=== PATIENT | female | born 1965 | race Caucasian/White ===

== ENCOUNTER → 2022-02-24 16:50 | Outpatient (CLI) | payer OTHER, SELFPAY ==
--- NOTE | ~2022-02-24 | MR_ITS ---
EXAMINATION: MR cervical spine wo con DATE: 02/24/2022 17:38 INDICATION: Right-sided neck pain. Right shoulder pain. TECHNIQUE: Magnetic resonance imaging (MRI) of the cervical spine was performed without intravenous c ontrast. Sequences included sagittal T2-weighted FSE, sagittal T2-weighted FS FSE, sagittal T1-weight ed FSE, axial MERGE, and axial T2-weighted FSE. COMPARISON: None FINDINGS: There is hypolordosis of cervical spine. Vertebral body heights are normal. There is mildly decreased disc height at C5-C6 and moderately decreased disc height at C6-C7. The spinal cord signal intensity is normal. The following disc levels are specifically discussed: C2-C3: The disc does not extend beyond the endplate margin. There is moderate right and mild left unc overtebral joint osteoarthritis. There is severe bilateral facet joint osteoarthritis. There is mild bilateral neural foraminal stenosis. There is no central canal stenosis. C3-C4: The disc does not extend beyond the endplate margin. There is mild bilateral uncovertebral myron nt osteoarthritis. There is severe bilateral facet joint osteoarthritis. There is moderate bilateral neural foraminal stenosis. There is no central canal stenosis. C4-C5: The disc is bulging. There is mild bilateral uncovertebral joint osteoarthritis. There is dora re bilateral facet joint osteoarthritis. There is mild right and moderate left neural foraminal steno sis. There is no central canal stenosis. C5-C6: The disc is bulging. There is severe bilateral uncovertebral joint osteoarthritis. There is se albert bilateral facet joint osteoarthritis. There is moderate bilateral neural foraminal stenosis. The re is mild central canal stenosis. C6-C7: The disc is bulging. There is severe bilateral uncovertebral joint osteoarthritis. There is mi ld right facet joint osteoarthritis. There is moderate bilateral neural foraminal stenosis. There is mild central canal stenosis. C7-T1: The disc does not extend beyond the endplate margin. There is mild bilateral uncovertebral myron nt osteoarthritis. There is moderate right and severe left facet joint osteoarthritis. There is mild bilateral neural foraminal stenosis. There is no central canal stenosis. IMPRESSION: 1. Moderate cervical spondylosis. Reviewed, dictated and finalized at location A.
== END ==
PROVIDERS: PCP Emergency Medicine; Visit Provider Emergency Medicine
DX: M25.511 Pain in right shoulder (principal); M47.812 Spondylosis without myelopathy or radiculopathy, cervical region
CPT/HCPCS: 72141

== ENCOUNTER → 2022-08-11 16:05 | Outpatient (CLI) | payer OTHER, SELFPAY ==
--- NOTE | ~2022-08-11 | XR_ITS ---
XR chest 2V DATE: 08/11/2022 16:24 INDICATION: Chest pain with breathing TECHNIQUE: 2 views COMPARISON: 02/01/2017 PA and lateral chest FINDINGS: Normal heart size. No hilar or mediastinal enlargement. Moderate hyperinflation. No pulm onary infiltrate or consolidation, pulmonary vascular congestion or pleural effusion or pneumothorax. IMPRESSION: Moderate hyperinflation Reviewed, dictated and finalized at location L. 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
== END ==
PROVIDERS: PCP Emergency Medicine; Visit Provider Emergency Medicine
DX: R07.1 Chest pain on breathing (principal); R91.8 Other nonspecific abnormal finding of lung field
CPT/HCPCS: 71046

== ENCOUNTER 2023-10-24 14:58 | Outpatient (CLI) | payer OTHER, SELFPAY ==
--- NOTE | ~2023-10-24 | XR_ITS ---
EXAMINATION: XR wrist RT 2V, XR wrist LT 2V DATE: 10/24/2023 15:11 INDICATION: Bilateral wrist pain TECHNIQUE: 1. Posteroanterior and lateral views of the right wrist were obtained. 2. Posteroanterior and lateral views of the left wrist were obtained. COMPARISON: none FINDINGS: Bone alignment is normal at the bilateral wrists. No acute fractures. Polyarticular osteoarthritis, s evere at the left first carpometacarpal joint, moderate severity at the right first carpometacarpal a nd left triscaphe joints and mild at the right triscaphe and bilateral first metacarpophalangeal join ts. There are prominent hypertrophic changes and likely loose osteochondral body at the left first ca rpometacarpal joint. Soft tissues are unremarkable. IMPRESSION: 1. Polyarticular osteoarthritis most prominent at the radial aspect of the bilateral carpi, severe on the left and moderate on the right. Reviewed, dictated and finalized at location A. IMPRESSION: 1. Polyarticular osteoarthritis most prominent at the radial aspect of the bila teral carpi, severe on the left and moderate on the right.
== END 2023-10-24 14:59 ==
PROVIDERS: PCP Emergency Medicine; Visit Provider Emergency Medicine
DX: M19.032 Primary osteoarthritis, left wrist (principal); M19.031 Primary osteoarthritis, right wrist
CPT/HCPCS: 73100

== ENCOUNTER 2023-12-27 12:54 | Outpatient (CLI) | payer OTHER, SELFPAY ==
--- NOTE | 2023-12-27 13:30 | NEURO_ITS ---
Impression: # Complains of numbness of hands. Non-diabetic. # Subtle right Carpal Tunnel Syndrome. # No ulnar neuropathy. # Normal needle/EMG exam. Nerve Conduction Studies Anti Sensory Summary Table Stim Site NR Peak (ms) P-T Amp (?V) Site1 Site2 Delta-P (ms) Dist (cm) Casey (m/s) Left Median Anti Sensory (2-3nd Digit) Wrist 2.7 76.8 Wrist 2-3nd Digit 2.7 14.0 52 Wrist 2.7 59.5 Wrist 2-3nd Digit 2.7 14.0 52 Right Median Anti Sensory (2-3nd Digit) Wrist 3.1 43.0 Wrist 2-3nd Digit 3.1 14.0 45 Wrist 3.1 74.3 Wrist 2-3nd Digit 3.1 14.0 45 Left Radial Anti Sensory (Base 1st Digit) Wrist 1.7 10.7 Wrist Base 1st Digit 1.7 0.0 Right Radial Anti Sensory (Base 1st Digit) Wrist 2.5 13.3 Wrist Base 1st Digit 2.5 0.0 Left Ulnar Anti Sensory (5th Digit) Wrist 2.3 37.4 Wrist 5th Digit 2.3 14.0 61 Right Ulnar Anti Sensory (5th Digit) Wrist 2.3 31.5 Wrist 5th Digit 2.3 14.0 61 Motor Summary Table Stim Site NR Onset (ms) O-P Amp (mV) Site1 Site2 Delta-0 (ms) Dist (cm) Casey (m/s) Left Median Motor (Abd Poll Brev) Wrist 3.1 4.0 Elbow Wrist 5.0 30.0 60 Elbow 8.1 1.9 Right Median Motor (Abd Poll Brev) Wrist 3.4 6.4 Elbow Wrist 5.0 30.0 60 Elbow 8.4 6.2 Left Ulnar Motor (Abd Dig Minimi) Wrist 2.3 6.8 A Elbow Wrist 5.3 30.0 57 A Elbow 7.6 6.1 Right Ulnar Motor (Abd Dig Minimi) Wrist 2.4 8.4 A Elbow Wrist 5.3 30.0 57 A Elbow 7.7 8.0 B Elbow Wrist 0.3 0.0 F Wave Studies NR F-Lat (ms) L-R F-Lat (ms) Left Median (Mrkrs) (Abd Poll Brev) 28.56 0.02 Right Median (Mrkrs) (Abd Poll Brev) 28.54 0.02 Left Ulnar (Mrkrs) (Abd Dig Min) 27.67 0.61 Right Ulnar (Mrkrs) (Abd Dig Min) 28.28 0.61 EMG Side Muscle Nerve Root Ins Act Fibs Amp Dur Recrt Comment Right 1stDorInt Ulnar C8-T1 Nml Nml Nml Nml Nml Right Ext Indicis Radial (Post Int) C7-8 Nml Nml Nml Nml Nml Right Ext Digitorum Radial (Post Int) C7-8 Nml Nml Nml Nml Nml Right BrachioRad Radial C5-6 Nml Nml Nml Nml Nml Right PronatorTeres Median C6-7 Nml Nml Nml Nml Nml Right Abd Poll Brev Median C8-T1 Nml Nml Nml Nml Nml Right ABD Dig Min Ulnar C8-T1 Nml Nml Nml Nml Nml Left 1stDorInt Ulnar C8-T1 Nml Nml Nml Nml Nml Left Ext Indicis Radial (Post Int) C7-8 Nml Nml Nml Nml Nml Left Ext Digitorum Radial (Post Int) C7-8 Nml Nml Nml Nml Nml Left BrachioRad Radial C5-6 Nml Nml Nml Nml Nml Left PronatorTeres Median C6-7 Nml Nml Nml Nml Nml Left Abd Poll Brev Median C8-T1 Nml Nml Nml Nml Nml Left ABD Dig Min Ulnar C8-T1 Nml Nml Nml Nml Nml MTDD
== END 2023-12-27 12:55 | disposition home or self-care (01) ==
PROVIDERS: PCP Emergency Medicine; Visit Provider Plastic Surgery
DX: G56.01 Carpal tunnel syndrome, right upper limb (principal)
CPT/HCPCS: 95886; 95911

== ENCOUNTER 2024-01-01 15:00 | Outpatient (RCR) | payer OTHER, SELFPAY ==
--- NOTE | 2023-11-20 16:04 | OTOPEVAL1 ---
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 She reports she is limited in her hand use. She reports it's next to impossible to open a jar or pinch to open a bag. She states she frequently drops items. She is waiting on a call from neurology to schedule an EMG for possible CTS. 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 Reported Pain Level Pain Score 4/10 bilateral thumbs Assessment OT Clinical Summary Patient referred to OT with dx of bilateral 1st CMC OA and carpal tunnel syndrome. 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 Her pain has progressed to the point where it's constant. A custom hand-based thumb spica splint was fabricated for the patient today to support, protect, and immobilize the 1st CMC to assist in reducing inflammation. Initiated education on joint protection techniques to further help reduce repetitive strain. Continued skilled OT indicated for fabrication of a left thumb spica orthosis, use of modalities, manual therapy, and progressive therapeutic exercise to facilitate optimal functional hand use and reduced pain. Plan of Care Interventions Therapeutic Exercise,Manual Therapy,Therapeutic Activities,Check Out for Orthotic/Pr,Ultrasound, Paraffin OT Services Indicated Yes Treatment Frequency and 1x/week for 6 visits Duration These treatments will address the objective and functional deficits as defined above. The patient will be advanced safely and appropriately in order for the patient to progress towards his/her prior level of function. Additional exercises will be introduced and as well as a comprehensive home exercise program upon discharge, if needed, ?to ensure carryover of functional gains achieved in the clinic. This treatment plan has been reviewed and agreement upon by the patient.
--- NOTE | 2023-11-20 16:04 | OPREHPOC ---
Outpatient Therapy Plan of Care This is a Multidisciplinary Plan of Care that may contain components documented by all disciplines (PT, OT, and ST.) OT Problem 1 OT Problem #1 Knowledge Deficit OT Goal 1 Goal 1. Patient to be independent with instructed materails. Target Visit 6 OT Problem 2 OT Problem #2 Pain OT Goal 1 Goal 1. Patient to report reduced pain in bilateral hands to 2/10 at worst . Target Visit 6 OT Problem 3 OT Problem #3 Impaired Strength OT Goal 1 Goal 1. Patient to be able to complete light rod and tube straightener/pinch strengthening with yellow theraputty without pain . 2. Patient to be independent with CMC stabilization HEP (rubber band).
--- NOTE | 2023-12-05 08:07 | PCOTNOTE ---
Addendum to Note: Paraffin applied to both R and L hand on Date Nov 27 treatment time 15:15 Paraffin Temp 135 degrees F 5 layers applied to Bilateral hand for a duration of 10 minutes. Applied to assist with pain management and soft tissue tightness. Patient was educated in use of paraffin and had good response to paraffin.
--- NOTE | 2024-01-01 15:43 | OTOPDC ---
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 She is having less pain with writing and typing tasks. She reports she continues to have difficulty with opening a jar or pinching to open a bag. She has been using adaptive equipment to open jars, containers, etc. to take the pressure off of her thumbs and she states this is helpful. She reports she isn't dropping items as much. EMG 12/27/23 shows mild CTS on the right. Assessment OT Clinical Summary Patient referred to OT with dx of bilateral 1st CMC OA and carpal tunnel syndrome. She no longer is experiencing constant pain and reports that therapy has helped teach her how she can better care for her thumbs. 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 Pinch strengths, particularly lateral pinching continues to be limited and painful. She has weaned off the brace, but understands that she can resume splinting as needed for pain control. We reviewed her HEP and she requests discharge at this time. She demonstrates good understanding of all materials. Recommending she continue to work on light functional strengthening to support the CMC joint. D/C OT with HEP. Plan of Care OT Services Indicated No
== END 2024-01-02 09:38 | disposition home or self-care (01) ==
LOC: ANHOT 15:00
PROVIDERS: PCP Emergency Medicine; Visit Provider Plastic Surgery
DX: M18.9 Osteoarthritis of first carpometacarpal joint, unspecified (principal); G56.03 Carpal tunnel syndrome, bilateral upper limbs
CPT/HCPCS: 97018; 97110; 97140; 97165; L3913

== ENCOUNTER 2024-12-04 | Day surgery (SDC) | payer OTHER, SELFPAY ==
[2024-12-02 08:25] VITALS: BMI 41.4
--- NOTE | 2024-12-02 08:36 | PC.NURSE ---
Report to the Outpatient Waiting Room, entrance under the green pavilion located off [facility], at time _0600_ on date _[id number]_. Planned Procedure Time: _0730_.? Time changes happen often and if your time is changed the preop area will call you the afternoon before. - You and your visitor will be asked to self-screen and do not enter if you have any COVID symptoms. Please call surgeon if you need to reschedule. - A mask is optional within the hospital at this time. - No food or drink from midnight until time of surgery and no smoking, or chewing tobacco (or any form of nicotine). No chewing gum, candy or mints. Take only the following medications with a SIP of water on the morning of surgery: ___Amlodipine and Sertraline.____ DO NOT STOP ANY OF YOUR OTHER PRESCRIPTION MEDICATIONS PRIOR TO SURGERY EXCEPT THE FOLLOWING Hold all vitamins and supplements for 3 days per anesthesiologist. Stop now. Medications to discontinue per physician Date to take last dose Please no make-up, nail georgian, hairspray, perfume, deodorant, or body powder the day of surgery.? No jewelry (including any body piercings) or valuables the day of surgery, leave them at home.? Please take a shower or bath the night before, or the morning of, surgery with an antibacterial soap.? Wear comfortable, loose fitting clothing.? - Jewelry must be removed prior to entering the operating room.? Rings and piercings that are not removed may be cut off. - The hospital will not accept responsibility for valuables.? - Please leave all valuables, including medications, at home the day of surgery. If you are going home after surgery, a licensed driver utility worker must drive you home.? - NO public transportation without another adult if you receive anesthesia. - We recommend that an adult stay with you for 24 hours following discharge. - We also recommend that you do not drive, make important decision, drink alcoholic beverages, or take any drugs that were not prescribed by your health care provider for at least 24 hours after your discharge time. Follow any additional instructions given to you from your surgeon. Telephone instructions given to __Krysta___and asked if any additional questions and then verbalized understanding. Patient advised to call surgeon office or pre surgery nurse liaison [phone] if any additional questions.
--- OUTSIDE RECORDS SUMMARY | 2024-12-04 00:02 | XMS_ITS | Clinical Summary ---
Author Organization [facility] Address [address] [place] [address] Care Team Providers Care Retail Assistant Manager Name Role Phone Unavailable Primary Care Provider Unavailabl e Source Comments [facility],non-owned Affiliates and Associated Physician Practices is amultiple site organization consisting of ambulatory clinics and hospital sitesin [place], [place], [place] and [place]. This disclosure is being madepursuant to the Care Everywhere program and may not contain all information available regarding this patient. Last updated 18.[facility] Social History Tobacco Use Types Packs/Day Years Used Date Smoking Tobacco: Never Assessed Comments Unknown Sex and Gender Information Value Date Recorded Sex Assigned at Not on file Legal Sex Female 11:13 AM CDT Gender Identity Not on file Sexual Orientation Not on file Plan of Treatment Health Maintenance Due Date Last Done Comments COLOGUARD (AGES 45-75) - COL ON CA SCREENING 1967 COLON MONITORING 1967 COLONOSCOPY - COLON CA SCREENING 1967 CT COLONOGRAPHY - COLON CA SCREENING 1967 Colorectal Cancer Screening 1967 FIT - COLON CA SCREENING 1967 FLEX SIG - COLON CA SCREENING 1967 LIPID TESTING 1967 MAMMOGRAM 1967 HIV SCREENING 12/25/1982 HEPATITIS C SCREENING 12/21/1985 DTAP/TDAP/TD VACCINES (1 - Tdap) 12/25/1986 HEPATITIS B VACCINE (1 of 3 - 19+ 3-dose series) 12/25/1986 PNEUMOCOCCAL VACCINE 50+ (1 of 1 - PCV) 12/25/2017 ZOSTER VACCINE (1 of 2) 12/25/2017 COVID-19 VACCINE ( - 2023-2 5 season) 2024 DEPRESSION SCREENING 06/05/2024 INFLUENZA VACCINE (Season Ended) 2025 HIB VACCINE Aged Out No longer eligi ble based on patient's age to complete this topic HPV VACCINE Aged Out No longer eligi ble based on patient's age to complete this topic MENINGOCOCCAL (Group B) VACC INE SHARED DECISION-MAKING Aged Out No longer eligibl e based on patient's age to complete this topic MENINGOCOCCAL GROUPS A/C/Y/W VACCINE Aged Out No longer eligible b ased on patient's age to complete this topic Insurance [employer]
--- OUTSIDE RECORDS SUMMARY | 2024-12-04 00:02 | XMS_ITS | Encounter Summary ---
Author Organization [facility] Address [address] [place] [address] Care Team Providers Care Floor Coverings Installer Name Role Phone Unavailable Primary Care Provider Unavailabl e Encounter Details Date Type Department Care Team (Late st Contact Info) Description 10/10/2019 Lab Requisition [facility] [address] [place] [id number] Darron Rodgers MD [address] [place] [address] Social History Tobacco Use Types Packs/Day Years Used Date Smoking Tobacco: Never Assessed Comments Unknown Sex and Gender Information Value Date Recorded Sex Assigned at Not on file Legal Sex Female 11:13 AM CDT Gender Identity Not on file Sexual Orientation Not on file documented as of this encounter Plan of Treatment Not on file documented as of this encounter Procedures Procedure Name Priority Date/Time Associated Diagnosis Comments DERMATOPATHOLOGY Routine 10/09/2019 12:0 0 AM CDT documented in this encounter Results * DERMATOPATHOLOGY (10/09/2019 12:00 AM CDT) Case Report Dermatopathology Report Case: [id number] Authorizing Provider: Darron Rodgers MD Collected: 10/09/2019 12:00 AM Ordering Location: [facility] Received: 10/10/2019 11:33 AM Pathologist: Erwin Pal MD Specimen: Skin, midline mid back 0 2:41 PM CDT DERMATOPATHOLOGY LABORATORY Final Diagnosis Specimen A. SKIN, midline mid back: EPIDERMOID CYST (L72.0) 0 2:41 PM CDT DERMATOPATHOLOGY LABORATORY at 1441 CDT Clinical History R/O EIC vs other neoplasm. 0 2:41 PM CDT DERMATOPATHOLOGY LABORATORY Gross Description Specimen A: Received is one formalin filled container labeled with the patient's name and designated midline mid back. The specimen consists of an excision measuring [id number], bisected and submitted in cassettes 1-2. Jar 0. 0 2:41 PM CDT DERMATOPATHOLOGY LABORATORY Microscopic Description Specimen A. SKIN, midline mid back: Within the dermis, there is a space lined by epithelium that resembles normal epidermis and the infundibular portion of the hair follicle. 0 2:41 PM CDT DERMATOPATHOLOGY LABORATORY Disclaimer An external and internal positive and negative controls are appropriate for the histochemical, immunohistochemical and immunofluorescence stain(s) in this case (if any), except where stated explicitly. The performance characteristics of the stain(s) cited in this report were developed and its performance characteristic determined by the Dermatopathology Laboratory at [facility], directed by Dr. Aj Pal. These tests need not be, and therefore are not, approved by the [place] Food and Drug Administration. The tests are used for clinical purposes. Billing Codes Specimen Charges Stain Charges 06127 1 0 2:41 PM CDT DERMATOPATHOLOGY LABORATORY Embedded Images 0 2:41 PM CDT DERMATOPATHOLOGY LABORATORY Pathology/Cytolog y TISSUE SPECIMEN FROM SKIN / Unknown 10/09/2019 10/10/2019 11:33 AM CDT Darron Rodgers MD LAB - PATHOLOGY/CYTOLOGY ORD ERABLES Final Result DERMATOPATHOLOGY LABORATORY [facility] - Department of Dermatology [address] [place] [address], [facility] [phone] documented in this encounter Visit Diagnoses Not on filedocumented in this encounter
[2024-12-04 06:00] VITALS: BP 135/84; PULSE 69; RESP 16; TEMP 36.9; O2SAT 97
[2024-12-04] MEDS: LACTATED RINGERS 1,000 ML 30 ML IV CONT (06:12)
--- NOTE | 2024-12-04 06:46 | P.PNAN_ITS ---
Anes - Initial Pre Proc Eval Procedure: Operation Date: 12/04/24 07:30 Proposed Procedures p Right Endoscopic Carpal Tunnel Release, Possible Open, Right Cubital Tunnel Release - Richard Mcintosh MD Date/Time: 12/04/24 06:46 Surgeon: Richard Mcintosh MD Pre Op Diagnosis: rt carpal and cubital tunnel syndrome Patient Data Age: 58 Gender: F Height: 1.75 m Weight: 126.1 kg Last Vital Signs Temp 36.9 C 12/04/24 06:00 Pulse 69 12/04/24 06:00 Resp 16 12/04/24 06:00 BP 135/84 12/04/24 06:00 Pulse Ox 97 12/04/24 06:00 O2 Del Method Room Air 12/04/24 06:00 Allergies Allergy/AdvReac Type Severity Reaction Status Date / Time codeine Allergy Unknown unknown Verified 12/04/24 06:27 hydrocodone AdvReac Unknown SEVERE GI Verified 12/04/24 06:27 DISTRESS Home Medications ?Medication ?Instructions ?Recorded ?Confirmed ?Type cetirizine 10 mg tablet (Zyrtec) 10 mg PO DAILY 10/14/19 12/04/24 History cholecalciferol (vitamin D3) 50 50 mcg PO DAILY 02/14/22 12/04/24 History mcg (2,000 unit) capsule mecobalamin (vitamin B12) 1,000 1,000 mcg PO DAILY 09/28/23 12/04/24 History mcg chewable tablet sertraline 50 mg tablet See Rx Instructions .Route 10/06/23 12/04/24 Rx .COMPLEX #270 tabs simvastatin 40 mg tablet See Rx Instructions .Route 10/19/23 12/04/24 Rx .COMPLEX #90 tabs magnesium 250 mg tablet 483 mg PO DAILY 01/01/24 12/04/24 History biotin 5,000 mcg chewable tablet 5,000 mcg PO DAILY 02/13/24 12/04/24 History metoprolol tartrate 50 mg tablet 50 mg PO DAILY #90 tabs 05/08/24 12/04/24 Rx omega-3s 350 dv-[id number]-[id number]-[id number] 2 cap PO DAILY 06/24/24 12/04/24 History zumwl7w-skve oil 600 mg capsule (Fish Oil) lisinopril 10 mg tablet See Rx Instructions .Route 10/29/24 12/04/24 Rx .COMPLEX #90 tabs amlodipine 10 mg tablet See Rx Instructions .Route 11/27/24 12/04/24 Rx .COMPLEX #90 tabs Patient hx anesthesia problems: none Family hx anesthesia problems: none Results Review: All pre-operative results and documents have been reviewed as part of the pre- operative evaluation. [facility] Past Medical History Medical History Shoulder pain, right Respiratory tract congestion with cough Upper respiratory tract infection Palpitation Sinusitis Epigastric pain Folliculitis Hyperglycemia Hypothyroidism, unspecified Major depressive disorder, single episode, unspecified Metabolic syndrome Rash Rhinosinusitis Sore throat Vitamin D deficiency Hyperlipidemia Surgical History Surgical History (Updated 12/04/24 @ 06:49 by Corona Escobar MD) History of bladder surgery History of appendectomy Family History Family History Father Family history of pancreatic disease, Onset Age: 60 Mother Family history of heart disease in male family member before age 55, Onset Age: 67 Hypertension Sibling Hypertension Social History Social History Smoking status: Former smoker Tobacco type: cigarettes Second hand tobacco smoke exposure: No Smoking end date: 06/05/03 Alcohol intake: current Substance use: never Substance use type: marijuana Do You Feel Safe in your Home?: Yes Lack of Transportation: No Lack of Food: Never True Current Housing: Decline to Answer Concerned About Future Housing: Decline to Answer Difficulty Paying Gas/Electric Bills: Decline to Answer Difficulty Paying for Meds: Decline to Answer Currently Unemployed: Decline to Answer Education: Trade/Vocational Certificate Difficulty w/ Childcare or Family Care: Decline to Answer Anes - Eval Final PreProcedure Day of Procedure 12/04/24 06:46 Patient weight: morbidly obese Heart: regular rate and rhythm Lungs: clear to auscultation Airway: Mallampati scale class II Neurological: alert and oriented Last oral intake: >/= 8 hours ASA classification: III Emergent: no Anesthetic plan: proceed Anesthesia type and monitoring: general GIVS and standard monitoring Results Review: All pre-operative results and documents have been reviewed as part of the pre- operative evaluation. Informed Consent: The patient's anesthetic plan and its attendant risks and benefits were discussed with the patient/family/POA. Questions were solicited and answers provided to the satisfaction of the patient/family/POA.
--- NOTE | 2024-12-04 07:19 | PM.HPGS ---
History of Present Illness History of Present Illness Chief complaint: rt carpal and cubital tunnel syndrome Narrative: Patient seen and examined in pre-operative holding area. No interval change in medical history or symptoms. Patient recalls previous discussion of benefits and alternatives to procedure. Continues to desire to proceed with right endoscopic possible open carpal tunnel releae and right cubital tunnel release . Reviewed procedure, post-op expectations and risks including but not limited to bleeding, infection, injury to tendon/nerve/vessel, decreased hand function, stiffness, RSD, no change or worsening of symptoms. I discussed the possible use of assistants and their participation in the case. Patient stated understanding and signed the consent form wishing to proceed. Review of Systems Review of Systems: All systems reviewed & are unremarkable except as noted in HPI and below PMFSH Past Medical History Medical History Shoulder pain, right Respiratory tract congestion with cough Upper respiratory tract infection Palpitation Sinusitis Epigastric pain Folliculitis Hyperglycemia Hypothyroidism, unspecified Major depressive disorder, single episode, unspecified Metabolic syndrome Rash Rhinosinusitis Sore throat Vitamin D deficiency Hyperlipidemia Surgical History Surgical History (Updated 12/04/24 @ 06:49 by Corona Escobar MD) History of bladder surgery History of appendectomy Family History Family History Father Family history of pancreatic disease, Onset Age: 60 Mother Family history of heart disease in male family member before age 55, Onset Age: 67 Hypertension Sibling Hypertension Social History Social History Smoking status: Former smoker Tobacco type: cigarettes Second hand tobacco smoke exposure: No Smoking end date: 06/05/03 Alcohol intake: current Substance use: never Substance use type: marijuana Do You Feel Safe in your Home?: Yes Lack of Transportation: No Lack of Food: Never True Current Housing: Decline to Answer Concerned About Future Housing: Decline to Answer Difficulty Paying Gas/Electric Bills: Decline to Answer Difficulty Paying for Meds: Decline to Answer Currently Unemployed: Decline to Answer Education: Trade/Vocational Certificate Difficulty w/ Childcare or Family Care: Decline to Answer Meds Home Medications and Allergies Home Medications ?Medication ?Instructions ?Recorded ?Confirmed ?Type cetirizine 10 mg tablet (Zyrtec) 10 mg PO DAILY 10/14/19 12/04/24 History cholecalciferol (vitamin D3) 50 50 mcg PO DAILY 02/14/22 12/04/24 History mcg (2,000 unit) capsule mecobalamin (vitamin B12) 1,000 1,000 mcg PO DAILY 09/28/23 12/04/24 History mcg chewable tablet sertraline 50 mg tablet See Rx Instructions .Route 10/06/23 12/04/24 Rx .COMPLEX #270 tabs simvastatin 40 mg tablet See Rx Instructions .Route 10/19/23 12/04/24 Rx .COMPLEX #90 tabs magnesium 250 mg tablet 483 mg PO DAILY 01/01/24 12/04/24 History biotin 5,000 mcg chewable tablet 5,000 mcg PO DAILY 02/13/24 12/04/24 History metoprolol tartrate 50 mg tablet 50 mg PO DAILY #90 tabs 05/08/24 12/04/24 Rx omega-3s 350 ou-jbj-dzc-other 2 cap PO DAILY 06/24/24 12/04/24 History hfihm5a-ttak oil 600 mg capsule (Fish Oil) lisinopril 10 mg tablet See Rx Instructions .Route 10/29/24 12/04/24 Rx .COMPLEX #90 tabs amlodipine 10 mg tablet See Rx Instructions .Route 11/27/24 12/04/24 Rx .COMPLEX #90 tabs Allergies Allergy/AdvReac Type Severity Reaction Status Date / Time codeine Allergy Unknown unknown Verified 12/04/24 06:27 hydrocodone AdvReac Unknown SEVERE GI Verified 12/04/24 06:27 DISTRESS Vital Signs Vital Signs - 24 hr 12/04/24 06:00 Temperature 36.9 C Pulse Rate 69 Respiratory Rate 16 Blood Pressure 135/84 Pulse Oximetry 97 Oxygen Delivery Room Air Assessment and Plan Assessment and plan (1) Carpal tunnel syndrome on both sides: Code(s): G56.03 - Carpal tunnel syndrome, bilateral upper limbs Status: Acute Assessment and Plan: cont as above (2) Ulnar neuropathy at elbow: Qualifiers: Laterality: unspecified laterality Qualified Code(s): G56.20 - Lesion of ulnar nerve, unspecified upper limb Code(s): G56.20 - Lesion of ulnar nerve, unspecified upper limb Status: Acute
--- NOTE | 2024-12-04 07:20 | P.OP_ITS ---
Procedure Note - Detailed Date of Procedure 12/04/24 Pre-op Diagnosis rt carpal and cubital tunnel syndrome Post-op Diagnosis Same Procedure Performed right ectr and CUTR Surgeon Richard Mcintosh MD [employer] Professor robert edwards pa-c Anesthesia MAC Description of Procedure INFORMED CONSENT: The patient was seen and examined and marked in the pre-op area.? The patient signed the consent form. PROCEDURE IN DETAIL:The patient taken back to OR on the stretcher in supine position. Time out performed with anesthesia, surgeon and staff agreeing on patient's name site and surgery to be performed SCDs were placed on the lower extremities and inflated. A tourniquet was placed on {right} upper extremity and antibiotics given IV After anesthesia administered sedation I injected {10}cc 1%lido with epi and 0.5% marcaine plain at the operative sites The?{right upper extremity}?was prepped and draped in sterile fashion the??{right upper extremity} was? exsanguinated with Esmarch bandage and tourniquet inflated to 250mmHg I made a transverse incision in the {right} volar distal wrist crease through skin and dermis with 15 blade scalpel.? Littler scissors spread down to antebrachial fascia. A small incision was made in antebrachial fascia allowing access to Carpal tunnel. I proceeded with sequential dilation staying in line with the ring finger and hugging the hook of the hamate.? I then used the synovial elevator to free any adhesions from the underside of the transverse carpal ligament. Next I was able to insert the Microaire endoscopic carpal tunnel device with direct visualization of the transverse fibers on the monitor and proceeded with complete segmental retrograde release of the ligament in its entirety.? I irrigated with normal saline and closed with 4-0 monocryl for dermis and subcuticular closure. I next proceeded with making a longitudinal incision between two heads for flexor carpi ulnaris at end of {right} cubital tunnel with 15 blade scalpel.? Littler scissors were used to spread down to FCU fascia.? An incision was made in FCU fascia and ulnar nerve identified exiting cubital tunnel.? I proceeded with complete retrograde release of the cubital tunnel including 7cm proximal for the intermuscular septum.? The nerve appeared healthy with visible vaso nervorum.? There was no subluxation on full elbow range of motion. ? I irrigated with normal saline and closure with 4-0 monocryl for dermis and subcuticular. The incisions were covered with Dermabond then 4x4s, francisco, and a posterior elbow and volar wrist splint for patient safety, security and comfort and secured with massimo bandages after the tourniquet was let down noting the hand was warm and well perfused.? Patient awaken from anesthesia and transferred to recovery in stable condition Complications - none EBL- 1cc Disposition - home in stable condition robert edwards pa-c was essential for positioning, retraction, closure and dressing placement [facility] Billing Surgery - Charge Forward: Surgery Billing ([id number] same for robert adding )
[2024-12-04] MEDS: ceFAZolin 3 GM/D5W 100 ML 100 ML IVPB (07:26)
[2024-12-04] MEDS: LIDO 1%/EPINEPHRINE 1:100,000 50 ML VIAL 10 ML INFILTRATE (07:26)
[2024-12-04] MEDS: BUPivacaine HCL 0.5% 10 ML AMP INFILTRATE (07:26)
[2024-12-04 08:05] VITALS: BP 119/69; PULSE 71; RESP 18; O2SAT 99
[2024-12-04 08:35] VITALS: BP 101/43; PULSE 59
[2024-12-04] MEDS: ACETAMINOPHEN 500 MG TABLET 1000 MG PO (08:43)
== END 2024-12-04 09:00 | disposition home or self-care (01) ==
PROVIDERS: PCP Emergency Medicine; Visit Provider Plastic Surgery
PROC: 01N54ZZ Release Median Nerve, Percutaneous Endoscopic Approach (ICD-10-PCS; CPT 29848; principal; 2024-12-04 07:30)
DX: G56.01 Carpal tunnel syndrome, right upper limb (principal); G56.21 Lesion of ulnar nerve, right upper limb; Z87.891 Personal history of nicotine dependence; E66.01 Morbid (severe) obesity due to excess calories; Z68.41 Body mass index [BMI] 40.0-44.9, adult
CPT/HCPCS: 29848; 64718; A9270; J0690; J2003; J2004; J2250; J2704; J7120

== ENCOUNTER 2025-02-28 14:40 | Outpatient (CLI) | payer OTHER, SELFPAY ==
--- NOTE | ~2025-02-28 | MR_ITS ---
EXAMINATION: MR lumbar spine wo/w con COMPARISON: None HISTORY: M54.9 - Dorsalgia, unspecified TECHNIQUE: Multiplanar multisequence images obtained of the lumbar without and with intravenous contrast, Prohance 17cc injected IV. FINDINGS: Moderate loss of vertebral height throughout with grade 1 retrolisthesis of L2 on L3 and L3 on L4, no fracture is identified. There are scattered areas of hemangioma formation otherwise marrow signal is appropriate. Posterior alignment intact. No abnormal signal within the posterior elements Conus terminates at T12-L1, no abnormal signal in the cord There is severe loss of disc height throughout with multilevel moderate to severe disc desiccation and endplate degenerative changes. The soft tissues appear unremarkable L5-S1: Circumferential bulging of the disc with ligamentum flavum and facet hypertrophy. Severe bilateral foramina and lateral recess stenosis with mild canal stenosis. L4-5: Circumferential bulging of the disc with ligamentum flavum and facet hypertrophy. Severe bilateral foramina, lateral recess and canal stenosis. L3-4: Circumferential bulging of the disc with ligamentum flavum and facet hypertrophy. Moderate bilateral foramina, lateral recess and canal stenosis. L2-3: Circumferential bulging of the disc with ligamentum flavum and facet hypertrophy. Moderate to severe bilateral foramina and lateral recess stenosis, mild canal stenosis. L1-L2: Circumferential bulging of the disc with broad-based disc protrusion to the left of midline with moderate bilateral foramina, lateral recess and canal stenosis. The contrast-enhanced sequences demonstrate mild abnormal enhancement involving the meninges at L4-5 with mild abnormal enhancement of the exiting nerve roots likely reactive due to the degenerative changes at this level in the absence of a history of fever or concern for discitis or meningitis. Clinically if there is concern for discitis or meningitis short-term follow-up is recommended to assess for change IMPRESSION: Degenerative changes detailed above. There is mild abnormal enhancement at L4-5. Please see above Reviewed, dictated and finalized at location P. IMPRESSION: Degenerative changes detailed above. There is mild abnormal enhance ment at L4-5. Please see above
== END 2025-02-28 14:41 | disposition home or self-care (01) ==
PROVIDERS: PCP Emergency Medicine; Visit Provider Emergency Medicine
DX: M51.370 Other intervertebral disc degeneration, lumbosacral region with discogenic back pain only (principal); M51.369 Other intervertebral disc degeneration, lumbar region without mention of lumbar back pain or lower extremity pain; M99.63 Osseous and subluxation stenosis of intervertebral foramina of lumbar region; M54.30 Sciatica, unspecified side
CPT/HCPCS: 72158; A9577

== ENCOUNTER 2025-03-26 02:29 | Day surgery (SDC) | payer OTHER, SELFPAY ==
--- NOTE | 2025-03-17 15:24 | PC.NURSE ---
[facility] has started construction of its new state of the art ER which will open Spring 2026. With this, we anticipate parking may be a challenge for some our surgical patients and families. Parking spaces are limited but are available for all Surgical, obstetrics, and ER patients sharing this lot. If you arrive and find you are having a hard time finding a parking space, please note that we understand the challenges, please drive around the hospital and park near Hospital Entrance 1. When you enter this entrance, you can ask a volunteer to direct or take you back to the surgical waiting area to check in. We appreciate everyone?s understanding of these expected challenges while we build for your future. Report to the Outpatient Waiting Room, entrance under the green pavilion located off [address], at time _0830__ on date 03/26/25_. Planned Procedure Time: 1030__.? Time changes happen often and if your time is changed the preop area will call you the afternoon before. - You and your visitor will be asked to self-screen and do not enter if you have any COVID symptoms. Please call surgeon if you need to reschedule. - A mask is optional within the hospital at this time. Patients may have clear liquids (water, carbonated beverages, clear teas, apple juice) until 8 hours prior to surgery with a maximum of 20 ounces. - No food from midnight until time of surgery and no smoking, or chewing tobacco (or any form of nicotine). No chewing gum, candy or mints. Take only the following medications with a SIP of water on the morning of surgery: _AMLODIPINE, SETRALINE, METOPROLOL DO NOT STOP ANY OF YOUR OTHER PRESCRIPTION MEDICATIONS PRIOR TO SURGERY EXCEPT THE FOLLOWING Hold all vitamins and supplements for 3 days per anesthesiologist. 03/23/25 Medications to discontinue per physician Date to take last dose Please no make-up, nail malay, hairspray, perfume, deodorant, or body powder the day of surgery.? No jewelry (including any body piercings) or valuables the day of surgery, leave them at home.? Please take a shower or bath the night before, or the morning of, surgery with an antibacterial soap.? Wear comfortable, loose fitting clothing.? Children are encouraged to wear pajamas. - Jewelry must be removed prior to entering the operating room.? Rings and piercings that are not removed may be cut off. - The hospital will not accept responsibility for valuables.? - Please leave all valuables, including medications, at home the day of surgery. If you are going home after surgery, a licensed driver guide must drive you home.? - NO public transportation without another adult if you receive anesthesia. - We recommend that an adult stay with you for 24 hours following discharge. - We also recommend that you do not drive, make important decision, drink alcoholic beverages, or take any drugs that were not prescribed by your health care provider for at least 24 hours after your discharge time. For Pediatric surgeries, we recommend two adults accompany the child home. Follow any additional instructions given to you from your surgeon. Telephone instructions given to TRES__and asked if any additional questions and then verbalized understanding. Patient advised to call surgeon office or pre surgery nurse liaison [phone] if any additional questions.
--- NOTE | 2025-03-26 06:53 | PM.HPGS ---
History of Present Illness History of Present Illness Chief complaint: Bilateral carpal and cubital tunnel syndrome Narrative: Patient seen and examined in pre-operative holding area. No interval change in medical history or symptoms. Patient recalls previous discussion of benefits and alternatives to procedure. Continues to desire to proceed with left endoscopic possible open carpal tunnel release and left cubital tunnel release. Reviewed procedure, post-op expectations and risks including but not limited to bleeding, infection, injury to tendon/nerve/vessel, decreased hand function, stiffness, RSD, no change or worsening of symptoms. I discussed the possible use of assistants and their participation in the case. Patient stated understanding and signed the consent form wishing to proceed. Review of Systems Review of Systems: All systems reviewed & are unremarkable except as noted in HPI and below PMFSH Past Medical History Medical History Neurogenic claudication due to lumbar spinal stenosis Dorsalgia Lumbar stenosis Lumbar spondylosis Lumbar radiculopathy Shoulder pain, right Respiratory tract congestion with cough Upper respiratory tract infection Palpitation Sinusitis Epigastric pain Folliculitis Hyperglycemia Hypothyroidism, unspecified Major depressive disorder, single episode, unspecified Metabolic syndrome Rash Rhinosinusitis Sore throat Vitamin D deficiency Hyperlipidemia Surgical History Surgical History History of carpal tunnel release History of bladder surgery History of appendectomy Family History Family History Father Family history of pancreatic disease, Onset Age: 60 Mother Family history of heart disease in male family member before age 55, Onset Age: 67 Hypertension Sibling Hypertension Social History Social History Smoking packs per day: 1 Smoking cigarettes per day: 20.0 Years smoked: 30 Smoking pack-years: 30.00 Smoking status: Former smoker Tobacco type: cigarettes Second hand tobacco smoke exposure: No Smoking end date: 12/02/04 Alcohol intake: current Drinks per week: 14 Substance use: never Substance use type: marijuana Other substance usage details: every other day Do You Feel Safe in your Home?: Yes Lack of Transportation: No Lack of Food: Never True Current Housing: I Have Housing Concerned About Future Housing: No Difficulty Paying Gas/Electric Bills: No Difficulty Paying for Meds: No Currently Unemployed: No Education: Trade/Vocational Certificate Difficulty w/ Childcare or Family Care: No Living arrangements: with family Spiritual care concerns: No Meds Home Medications and Allergies Home Medications ?Medication ?Instructions ?Recorded ?Confirmed ?Type cetirizine 10 mg tablet (Zyrtec) 10 mg PO DAILY 10/14/19 03/26/25 History cholecalciferol (vitamin D3) 50 50 mcg PO DAILY 02/14/22 03/26/25 History mcg (2,000 unit) capsule mecobalamin (vitamin B12) 1,000 1,000 mcg PO DAILY 09/28/23 03/26/25 History mcg chewable tablet simvastatin 40 mg tablet See Rx Instructions .Route 10/19/23 03/26/25 Rx .COMPLEX #90 tabs magnesium 250 mg tablet 483 mg PO DAILY 01/01/24 03/26/25 History biotin 5,000 mcg chewable tablet 5,000 mcg PO DAILY 02/13/24 03/26/25 History omega-3s 350 cb-ehd-ymy-other 2 cap PO DAILY 06/24/24 03/26/25 History elerm8y-uwao oil 600 mg capsule (Fish Oil) lisinopril 10 mg tablet See Rx Instructions .Route 10/29/24 03/26/25 Rx .COMPLEX #90 tabs amlodipine 10 mg tablet See Rx Instructions .Route 11/27/24 03/26/25 Rx .COMPLEX #90 tabs sertraline 50 mg tablet See Rx Instructions .Route 01/09/25 03/26/25 Rx .COMPLEX #270 tabs metoprolol tartrate 50 mg tablet See Rx Instructions .Route 01/27/25 03/26/25 Rx .COMPLEX #90 tabs cyclobenzaprine 10 mg tablet 10 mg PO BID #20 tabs 01/28/25 03/26/25 Rx tramadol 50 mg tablet 50 mg PO Q6H PRN pain #12 tabs 01/28/25 03/17/25 Rx gabapentin 300 mg capsule 300 mg PO QHS #30 caps 03/12/25 03/26/25 Rx collagen,hydrolysate 500 mg-biotin 2 cap PO DAILY 03/17/25 03/26/25 History 800 mcg-ascorbic acid 50 mg capsule (Collagen 1500 Plus C) Allergies Allergy/AdvReac Type Severity Reaction Status Date / Time codeine Allergy Unknown unknown Verified 03/26/25 07:41 hydrocodone AdvReac Unknown SEVERE GI Verified 03/26/25 07:41 DISTRESS Exam Narrative: unchanged Assessment and Plan Assessment and plan (1) Carpal tunnel syndrome on both sides: Code(s): G56.03 - Carpal tunnel syndrome, bilateral upper limbs Status: Acute Assessment and Plan: cont as above (2) Ulnar neuropathy at elbow: Qualifiers: Laterality: unspecified laterality Qualified Code(s): G56.20 - Lesion of ulnar nerve, unspecified upper limb Code(s): G56.20 - Lesion of ulnar nerve, unspecified upper limb Status: Acute
--- NOTE | 2025-03-26 06:54 | P.OP_ITS ---
Procedure Note - Detailed Date of Procedure 03/26/25 Pre-op Diagnosis left carpal and cubital tunnel syndrome Post-op Diagnosis Same Procedure Performed left ectr and CuTR Surgeon Richard Mcintosh MD [employer] Administrator Robert Murphy PA-C Anesthesia MAC Description of Procedure INFORMED CONSENT: The patient was seen and examined and marked in the pre-op area.? The patient signed the consent form. PROCEDURE IN DETAIL:The patient taken back to OR on the stretcher in supine position. Time out performed with anesthesia, surgeon and staff agreeing on patient's name site and surgery to be performed SCDs were placed on the lower extremities and inflated. A tourniquet was placed on {left} upper extremity and antibiotics given IV After anesthesia administered sedation I injected {10}cc 1%lido with epi and 0.5% marcaine plain at the operative sites The?{left upper extremity}?was prepped and draped in sterile fashion the??{left upper extremity} was? exsanguinated with Esmarch bandage and tourniquet inflated to 250mmHg I made a transverse incision in the {left} volar distal wrist crease through skin and dermis with 15 blade scalpel.? Littler scissors spread down to antebrachial fascia. A small incision was made in antebrachial fascia allowing access to Carpal tunnel. I proceeded with sequential dilation staying in line with the ring finger and hugging the hook of the hamate.? I then used the synovial elevator to free any adhesions from the underside of the transverse carpal ligament. Next I was able to insert the Microaire endoscopic carpal tunnel device with direct visualization of the transverse fibers on the monitor and proceeded with complete segmental retrograde release of the ligament in its entirety.? I irrigated with normal saline and closed with 4-0 monocryl for dermis and subcuticular closure. I next proceeded with making a longitudinal incision between two heads for flexor carpi ulnaris at end of {left} cubital tunnel with 15 blade scalpel.? Littler scissors were used to spread down to FCU fascia.? An incision was made in FCU fascia and ulnar nerve identified exiting cubital tunnel.? I proceeded with complete retrograde release of the cubital tunnel including 7cm proximal for the intermuscular septum.? The nerve appeared healthy with visible vaso nervorum.? There was no subluxation on full elbow range of motion. ? I irrigated with normal saline and closure with 4-0 monocryl for dermis and subcuticular. The incisions were covered with Dermabond then 4x4s, francisco, and a posterior elbow and volar wrist splint for patient safety, security and comfort and secured with massimo bandages after the tourniquet was let down noting the hand was warm and well perfused.? Patient awaken from anesthesia and transferred to recovery in stable condition Complications - none EBL- 1cc Disposition - home in stable condition Robert Murphy PA-C was essential for positioning, retraction, closure and dressing placement. [facility] Billing Surgery - Charge Forward: Surgery Billing ([id number] same for robert adding )
[2025-03-26 07:25] VITALS: BMI 41.5
--- NOTE | 2025-03-26 07:48 | WPDANESEPPF ---
Anes - Initial Pre Proc Eval Procedure: Operation Date: 03/26/25 09:00 Proposed Procedures p Left Endoscopic Carpal Tunnel Release, Possible Open, Left Cubital Tunnel Release - Richard Mcintosh MD Date/Time: 03/26/25 07:48 Surgeon: Richard Mcintosh MD Pre Op Diagnosis: Bilateral carpal and cubital tunnel syndrome Patient Data Age: 59 Gender: F Height: 1.75 m Weight: 127.6 kg Allergies Allergy/AdvReac Type Severity Reaction Status Date / Time codeine Allergy Unknown unknown Verified 03/26/25 07:41 hydrocodone AdvReac Unknown SEVERE GI Verified 03/26/25 07:41 DISTRESS Home Medications ?Medication ?Instructions ?Recorded ?Confirmed ?Type cetirizine 10 mg tablet (Zyrtec) 10 mg PO DAILY 10/14/19 03/26/25 History cholecalciferol (vitamin D3) 50 50 mcg PO DAILY 02/14/22 03/26/25 History mcg (2,000 unit) capsule mecobalamin (vitamin B12) 1,000 1,000 mcg PO DAILY 09/28/23 03/26/25 History mcg chewable tablet simvastatin 40 mg tablet See Rx Instructions .Route 10/19/23 03/26/25 Rx .COMPLEX #90 tabs magnesium 250 mg tablet 483 mg PO DAILY 01/01/24 03/26/25 History biotin 5,000 mcg chewable tablet 5,000 mcg PO DAILY 02/13/24 03/26/25 History omega-3s 350 fw-eip-tii-other 2 cap PO DAILY 06/24/24 03/26/25 History uvdyh0g-hgla oil 600 mg capsule (Fish Oil) lisinopril 10 mg tablet See Rx Instructions .Route 10/29/24 03/26/25 Rx .COMPLEX #90 tabs amlodipine 10 mg tablet See Rx Instructions .Route 11/27/24 03/26/25 Rx .COMPLEX #90 tabs sertraline 50 mg tablet See Rx Instructions .Route 01/09/25 03/26/25 Rx .COMPLEX #270 tabs metoprolol tartrate 50 mg tablet See Rx Instructions .Route 01/27/25 03/26/25 Rx .COMPLEX #90 tabs cyclobenzaprine 10 mg tablet 10 mg PO BID #20 tabs 01/28/25 03/26/25 Rx tramadol 50 mg tablet 50 mg PO Q6H PRN pain #12 tabs 01/28/25 03/17/25 Rx gabapentin 300 mg capsule 300 mg PO QHS #30 caps 03/12/25 03/26/25 Rx collagen,hydrolysate 500 mg-biotin 2 cap PO DAILY 03/17/25 03/26/25 History 800 mcg-ascorbic acid 50 mg capsule (Collagen 1500 Plus C) Patient hx anesthesia problems: none Family hx anesthesia problems: none Results Review: All pre-operative results and documents have been reviewed as part of the pre-operative evaluation. [facility] Past Medical History Medical History Neurogenic claudication due to lumbar spinal stenosis Dorsalgia Lumbar stenosis Lumbar spondylosis Lumbar radiculopathy Shoulder pain, right Respiratory tract congestion with cough Upper respiratory tract infection Palpitation Sinusitis Epigastric pain Folliculitis Hyperglycemia Hypothyroidism, unspecified Major depressive disorder, single episode, unspecified Metabolic syndrome Rash Rhinosinusitis Sore throat Vitamin D deficiency Hyperlipidemia Surgical History Surgical History History of carpal tunnel release History of bladder surgery History of appendectomy Family History Family History Father Family history of pancreatic disease, Onset Age: 60 Mother Family history of heart disease in male family member before age 55, Onset Age: 67 Hypertension Sibling Hypertension Social History Social History Smoking packs per day: 1 Smoking cigarettes per day: 20.0 Years smoked: 30 Smoking pack-years: 30.00 Smoking status: Former smoker Tobacco type: cigarettes Second hand tobacco smoke exposure: No Smoking end date: 12/02/04 Alcohol intake: current Drinks per week: 14 Substance use: never Substance use type: marijuana Other substance usage details: every other day Do You Feel Safe in your Home?: Yes Lack of Transportation: No Lack of Food: Never True Current Housing: I Have Housing Concerned About Future Housing: No Difficulty Paying Gas/Electric Bills: No Difficulty Paying for Meds: No Currently Unemployed: No Education: Trade/Vocational Certificate Difficulty w/ Childcare or Family Care: No Living arrangements: with family Spiritual care concerns: No Anes - Eval Final PreProcedure Day of Procedure 03/26/25 07:48 Patient weight: morbidly obese Heart: regular rate and rhythm Lungs: clear to auscultation Airway: Mallampati scale class II Neurological: alert and oriented Last oral intake: >/= 8 hours ASA classification: III Emergent: no Anesthetic plan: proceed Anesthesia type and monitoring: general GIVS and standard monitoring Results Review: All pre-operative results and documents have been reviewed as part of the pre-operative evaluation. Informed Consent: The patient's anesthetic plan and its attendant risks and benefits were discussed with the patient/family/POA. Questions were solicited and answers provided to the satisfaction of the patient/family/POA.
[2025-03-26] MEDS: ceFAZolin 3 GM/D5W 100 ML 100 ML IVPB (08:35)
[2025-03-26] MEDS: LIDO 1%/EPINEPHRINE 1:100,000 50 ML VIAL (08:42)
[2025-03-26 09:00] VITALS: BP 113/54; PULSE 64; RESP 16; O2SAT 96
[2025-03-26] MEDS: LACTATED RINGERS 1,000 ML 30 ML IV CONT (09:00)
[2025-03-26 09:30] VITALS: BP 118/62; PULSE 64; RESP 16; O2SAT 96
[2025-03-26 09:55] VITALS: BP 119/60; PULSE 57; RESP 16
== END 2025-03-26 10:07 | disposition home or self-care (01) ==
PROVIDERS: PCP Emergency Medicine; Visit Provider Plastic Surgery
PROC: 01N54ZZ Release Median Nerve, Percutaneous Endoscopic Approach (ICD-10-PCS; CPT 29848; principal; 2025-03-26 09:00)
DX: G56.02 Carpal tunnel syndrome, left upper limb (principal); G56.22 Lesion of ulnar nerve, left upper limb; E78.5 Hyperlipidemia, unspecified; E55.9 Vitamin D deficiency, unspecified; R73.9 Hyperglycemia, unspecified; E03.9 Hypothyroidism, unspecified; R00.2 Palpitations; E88.810 Metabolic syndrome; M48.062 Spinal stenosis, lumbar region with neurogenic claudication; F32.9 Major depressive disorder, single episode, unspecified; E66.01 Morbid (severe) obesity due to excess calories; Z68.41 Body mass index [BMI] 40.0-44.9, adult; Z79.891 Long term (current) use of opiate analgesic; Z98.890 Other specified postprocedural states; Z87.891 Personal history of nicotine dependence
CPT/HCPCS: 29848; 64718; J0690; J2003; J2004; J2250; J2704; J3010; J7120

== ENCOUNTER 2025-04-08 00:38 | Day surgery (SDC) | payer OTHER, SELFPAY ==
--- NOTE | 2025-03-28 15:33 | PC.NURSE ---
[facility] has started construction of its new state of the art ER which will open Spring 2026. With this, we anticipate parking may be a challenge for some our surgical patients and families. Parking spaces are limited but are available for all Surgical, obstetrics, and ER patients sharing this lot. If you arrive and find you are having a hard time finding a parking space, please note that we understand the challenges, please drive around the hospital and park near Hospital Entrance 1. When you enter this entrance, you can ask a volunteer to direct or take you back to the surgical waiting area to check in. We appreciate everyone?s understanding of these expected challenges while we build for your future. Report to the Outpatient Waiting Room, entrance under the green pavilion located off [address], at time _0700_ on date _[phone]_. Planned Procedure Time: _0800_.? Time changes happen often and if your time is changed the preop area will call you the afternoon before. - You and your visitor will be asked to self-screen and do not enter if you have any COVID symptoms. Please call surgeon if you need to reschedule. - A mask is optional within the hospital at this time. OK for light breakfast but nothing to eat or drink 2 hours prior to procedure which is 6am. No smoking, or chewing tobacco (or any form of nicotine). No chewing gum, candy or mints. Take only the following medications with a SIP of water on the morning of surgery: ___Medications OK____ DO NOT STOP ANY OF YOUR OTHER PRESCRIPTION MEDICATIONS PRIOR TO SURGERY EXCEPT THE FOLLOWING Hold all vitamins and supplements for 3 days per anesthesiologist. Medications to discontinue per physician Date to take last dose____ Please no make-up, nail egyptian, hairspray, perfume, deodorant, or body powder the day of surgery.? No jewelry (including any body piercings) or valuables the day of surgery, leave them at home.? Please take a shower or bath the night before, or the morning of, surgery with an antibacterial soap.? Wear comfortable, loose fitting clothing.? - Jewelry must be removed prior to entering the operating room.? Rings and piercings that are not removed may be cut off. - The hospital will not accept responsibility for valuables.? - Please leave all valuables, including medications, at home the day of surgery. If you are going home after surgery, a licensed lifter/driver must drive you home.? - NO public transportation without another adult if you receive anesthesia. - We recommend that an adult stay with you for 24 hours following discharge. - We also recommend that you do not drive, make important decision, drink alcoholic beverages, or take any drugs that were not prescribed by your health care provider for at least 24 hours after your discharge time. Follow any additional instructions given to you from your surgeon. Telephone instructions given to __Krysta__and asked if any additional questions and then verbalized understanding. Patient advised to call surgeon office or pre surgery nurse liaison [phone] if any additional questions.
[2025-03-28 15:41] VITALS: BMI 41.5
--- NOTE | ~2025-04-08 | XR_ITS ---
EXAMINATION: XR fluoroscopy no charge INDICATION: L4/5 INTRALAMINAR STEROID INJECTION . COMPARISON: None TECHNIQUE: 4 fluoroscopic images of the lower lumbar spine were obtained during intralaminar steroid injection. Fluoroscopy exposure time was 55 seconds. Air Kerma 35.245 mGy. DAP 6.9870 mGym2. FINDINGS/IMPRESSION: No radiologist was present or involved at the time of the procedure. Static images were submitted for interpretation. Images demonstrate a spinal needle in the canal at L4-5 with injection of contrast into the thecal sac. Fluoroscopic documentation of L4-5 interlaminar steroid injection.. Please refer to the operative note for complete procedural details. Reviewed, dictated and finalized at location A. ION MANAGER
[2025-04-08 07:41] VITALS: BP 137/77; PULSE 67; TEMP 36.2; O2SAT 98; BMI 40.9
--- NOTE | 2025-04-08 08:03 | WPDHPUPDATE1 ---
History and Physical Update Update Date/Time: 04/08/25 08:03 History and Physical has been reviewed, including an updated exam of the patient. There are NO changes in the patient's condition. Risks, benefits, and alternatives have been discussed and questions answered. Patient agrees to proceed with procedure.
--- NOTE | 2025-04-08 08:04 | P.OP_ITS ---
Procedure Note - Detailed Date of Procedure 04/08/25 Pre-op Diagnosis lumbar radiculopathy Post-op Diagnosis Same Procedure Performed Midline Lumbar Interlaminar Epidural Steroid Injection at L4-5 under Fluoroscopic Guidance and with Contrast Control. Surgeon Buddy Baker MD Anesthesia Local Description of Procedure INFORMED CONSENT: Risks, benefits and alternatives to the procedure were discussed in detail with the patient who expressed explicit understanding and consent to proceed. Patient was informed verbally and in written form regarding the risks associated with the procedure including the low risk of serious infection, bleeding/bruising, allergic reaction, nerve or organ injury, p aralysis, procedural site pain or discomfort, worsening pain and/or mobility, failure to treat and/or disfigurement. The patient expressed explicit understanding and consent to proceed. All materials required for the procedure were available prior to procedure start. Site and side were marked prior to procedure and confirmed in the presence of the patient. PROCEDURE IN DETAIL: The patient was brought to the procedural suite and placed in the prone position. Patient was made comfortable with use of pillows under the head/chest, hips and ankles. Skin overlying the injection site was prepared broadly with ChloraPrep applicator and draped in a sterile manner. Aseptic technique was employed throughout. The endplates of the vertebral body at the site of interest were aligned in the AP view. Slight caudad tilt and ipsilateral oblique angulation was utilized to optimize visualization of the targeted posterior intervertebral foramen at L4-5. Local anesthesia was established by infiltration with approximately 5 mL of 2% lidocaine via a 1-1/2 inch 27-gauge needle. A 20-gauge 4-inch Tuohy epidural needle was advanced intermittently until appropriate loss of resistance to air was identified via plastic loss of resistance syringe. Lateral view was used to confirm the appropriate positioning of the needle tip within the posterior epidural space. [In the AP and lateral views, a total of 2.0 mL of Omnipaque 300 contrast medium was injected after negative aspiration for CSF, blood or other bodily fluid, showing appropriate posterior epidural spread of contrast without evidence of intravascular or intrathecal placement.] After a repeat negative aspiration for blood or other bodily fluid, a 4 mL solution containing 10 mg of dexamethasone in sterile PF Normal Saline was injected after negative repeat aspiration. Appropriate spread of the injectate was confirmed with washout of previously injected contrast. No parasthesias were elicited. Needle was removed completely intact without difficulty. Images were saved and documented in the patient chart. Patient's skin was cleaned and sterile bandage applied. The patient tolerated the procedure well. The patient was transported to the recovery area in stable condition where they were observed for an appropriate amount of time prior to discharge, without evidence of complication. The patient was instructed to avoid excessive activity for the next 48 hours, including climbing and frequent use of stairs. Showers only for 48 hours. They were instructed not to drive or operate heavy machinery for 24 hours. They are to monitor for severe headaches, fevers, chills, night sweats, erythema/swelling at the site or any other signs of infection, bleeding/bruising, bowel or bladder changes as well as new pain, weakness or numbness in the upper or lower extremity. Should they notice these changes, they are instructed to call our office immediately or report directly to the nearest Emergency Department if no answer or if after posted office hours. COMPLICATIONS: None COMMENTS: None CONTRAST WASTED: 28mL Omnipaque 300. Complications No immediate complications Condition Stable Disposition Same day [facility] Billing Surgery - Charge Forward: Surgery Billing
[2025-04-08 08:49] VITALS: BP 151/78; PULSE 64; RESP 18; O2SAT 99
[2025-04-08] MEDS: DEXAMETHASONE SODIUM PHOSP/PF 10 MG/ML 1 ML VIAL I-LAMINAR (08:52)
[2025-04-08] MEDS: LIDOCAINE 1% LOCAL INJ 10 ML VIAL 5 ML INFILTRATE (08:53)
[2025-04-08 08:59] VITALS: BP 144/74; PULSE 60; RESP 18; O2SAT 99
[2025-04-08 09:05] VITALS: BP 133/71; PULSE 61; RESP 16; O2SAT 98
== END 2025-04-08 09:20 | disposition home or self-care (01) ==
PROVIDERS: PCP Emergency Medicine; Visit Provider Anesthesiology Pain Medicine
PROC: (CPT 62323; principal; 2025-04-08 08:30)
DX: M54.16 Radiculopathy, lumbar region (principal)
CPT/HCPCS: 62323; 99199; J2003; Q9965

== ENCOUNTER 2025-05-17 08:08 | Emergency (ER) | payer OTHER, SELFPAY ==
--- OUTSIDE RECORDS SUMMARY | 2025-05-17 08:11 | XMS_ITS | Encounter Summary ---
Author Organization [facility] Address [address] [place] [address] Care Team Providers Care Food Beverage Server Name Role Phone Unavailable Primary Care Provider Unavailabl e Encounter Details Date Type Department Care Team (Late st Contact Info) Description 10/10/2019 Lab Requisition [facility] [address] [place] [id number] Darron Rodgers MD [address] [place] [address] Social History Tobacco Use Types Packs/Day Years [...] AM CDT) Case Report Dermatopathology Report Case: [id number] Authorizing Provider: Darron Rodgers MD Collected: 10/09/2019 12:00 AM Ordering Location: [facility] Received: 10/10/2019 11:33 AM Pathologist: [...] The specimen consists of an excision measuring [id number], bisected and submitted in cassettes 1-2. Jar [...] characteristic determined by the Dermatopathology Laboratory at [facility], directed by Dr. Aj Pal. These tests need not be, and therefore are not, approved by the [place] Food and Drug Administration. The tests are used for clinical purposes. Billing Codes Specimen Charges Stain Charges 47863 1 0 2:41 PM CDT DERMATOPATHOLOGY LABORATORY Embedded Images 0 2:41 PM CDT DERMATOPATHOLOGY LABORATORY Pathology/Cytolog y TISSUE SPECIMEN FROM SKIN / Unknown 10/09/2019 10/10/2019 11:33 AM CDT Darron Rodgers MD LAB - PATHOLOGY/CYTOLOGY ORD ERABLES Final Result DERMATOPATHOLOGY LABORATORY [facility] - Department of Dermatology [address] [place] [address], [facility] [phone] documented in this encounter Visit Diagnoses Not on filedocumented in this encounter
--- OUTSIDE RECORDS SUMMARY | 2025-05-17 08:13 | XMS_ITS | Clinical Summary ---
Author Organization [facility] Address [address] [place] [address] Care Team Providers Care Yard Supervisor Name Role Phone Unavailable Primary Care Provider Unavailabl e Source Comments [email or web address],non-owned Affiliates and Associated Physician Practices is amultiple site organization consisting of ambulatory clinics and hospital sitesin [place], [place], [place] and [place]. This disclosure is being madepursuant to the Care Everywhere program and may not contain all information available regarding this patient. Last updated 18.[email or web address] Social History Tobacco Use Types Packs/Day Years [...] 12/25/2017 ZOSTER VACCINE (1 of 2) 12/25/2017 DEPRESSION SCREENING 06/05/2024 COVID-19 VACCINE (1 - 2024-2 6 season) 2025 INFLUENZA VACCINE (#1) 2025 HIB VACCINE Aged Out No longer [...] patient's age to complete this topic Insurance [employer]
[2025-05-17 08:17] VITALS: BP 140/67; PULSE 88; RESP 20; TEMP 36.2; O2SAT 98
--- NOTE | 2025-05-17 08:47 | ED.WOUNDLAC ---
HPI - Wound/Laceration General Chief Complaint: Fall Stated Complaint: Wound/Laceration Time Seen by Provider: 05/17/25 08:30 Source: patient, family and RN notes reviewed Mode of arrival: ambulatory Limitations: no limitations History of Present Illness HPI narrative: 59-year-old female presents to the [facility] complaining of fall last night. Patient said she was intoxicated last night and had too much to drink, she was worried she was going to throw up so she got out of bed and went to the trash can and when she did she loss consciousness and fell hitting her face on the trash can. Patient does not remember the incident but her son was standing there, I said he turned around for some did not see her follow-up with heard a thump. He said she was unconscious for a brief moment and then regained consciousness. Patient denies any headaches, dizziness, lightheadedness, nausea, vomiting, focal weakness, facial droop, slurred speech, vision changes, or any other symptoms. Patient denies taking blood thinners. Patient has an abrasion to her nose, swollen lower lip, and an oral laceration. Patient is unsure of her tetanus status. Related Data Home Medications ?Medication ?Instructions ?Recorded ?Confirmed ?Last Taken ?Type cetirizine 10 mg tablet (Zyrtec) 10 mg PO DAILY 10/14/19 05/15/25 03/25/25 History cholecalciferol (vitamin D3) 50 50 mcg PO DAILY 02/14/22 05/15/25 03/23/25 History mcg (2,000 unit) capsule mecobalamin (vitamin B12) 1,000 1,000 mcg PO DAILY 09/28/23 05/15/25 03/23/25 History mcg chewable tablet magnesium 250 mg tablet 483 mg PO DAILY 01/01/24 05/15/25 03/23/25 History biotin 5,000 mcg chewable tablet 5,000 mcg PO DAILY 02/13/24 05/15/25 03/23/25 History omega-3s 350 mz-dkf-ikm-other 2 cap PO DAILY 06/24/24 05/15/25 03/23/25 History bljcl0p-nlqv oil 600 mg capsule (Fish Oil) collagen,hydrolysate 500 mg-biotin 2 cap PO DAILY 10/13/25 12/11/25 10/19/25 History 800 mcg-ascorbic acid 50 mg capsule (Collagen 1500 Plus C) Allergies Allergy/AdvReac Type Severity Reaction Status Date / Time codeine AdvReac Intermediate Gastrointestinal Verified 05/17/25 08:11 Upset hydrocodone AdvReac Intermediate Gastrointestinal Verified 05/17/25 08:11 Upset Review of Systems Review of Systems: CONSTITUTIONAL: Denies fever, chills, or sweats. EYES: Denies visual changes, redness, or discharge. ENT: Denies rhinorrhea, congestion, sore throat, or otalgia. CARDIOVASCULAR: Denies chest pain, palpitations, dizziness, lightheadedness, or edema. RESPIRATORY: Denies cough or dyspnea. GASTROINTESTINAL: Denies abdominal pain, nausea, vomiting, or diarrhea. GENITOURINARY: Denies dysuria or hematuria. SKIN: Denies rash or itching. Positive for abrasions and lacerations. MUSCULOSKELETAL: Denies back pain, neck pain, joint pain, or myalgia. NEUROLOGIC: Denies headache, numbness, or weakness. Positive for loss of consciousness. PSYCHIATRIC: Denies anxiety or depression. All other systems reviewed are negative, except as documented in HPI. [facility] Past Medical History Medical History Vertebrogenic low back pain Neurogenic claudication due to lumbar spinal stenosis Dorsalgia Lumbar stenosis Lumbar spondylosis Lumbar radiculopathy Shoulder pain, right Respiratory tract congestion with cough Upper respiratory tract infection Palpitation Sinusitis Epigastric pain Folliculitis Hyperglycemia Hypothyroidism, unspecified Major depressive disorder, single episode, unspecified Metabolic syndrome Rash Rhinosinusitis Sore throat Vitamin D deficiency Hyperlipidemia Surgical History Surgical History History of carpal tunnel release History of bladder surgery History of appendectomy Family History Family History Father Family history of pancreatic disease, Onset Age: 60 Mother Family history of heart disease in male family member before age 55, Onset Age: 67 Hypertension Sibling Hypertension Social History Social History Social History: Caffeinetea/coffee Smoking packs per day: 1.5 Smoking cigarettes per day: 30.0 Years smoked: 24 Smoking pack-years: 36.00 Smoking status: Former smoker Tobacco type: cigarettes Second hand tobacco smoke exposure: No Smoking end date: 03/28/05 Additional smoking assessment comments: QUIT 2004 Alcohol intake: current Drinks per week: 12 Substance use: current Substance use type: marijuana Other substance usage details: Twice weekly Lack of Transportation: No Lack of Food: Never True Current Housing: I Have Housing Concerned About Future Housing: No Difficulty Paying Gas/Electric Bills: No Difficulty Paying for Meds: No Currently Unemployed: No Education: Trade/Vocational Certificate Difficulty w/ Childcare or Family Care: No Living arrangements: with family Spiritual care concerns: No Comments At the time of my signature, I reviewed and agree with the nursing past medical, surgical, social, and family history. There is no relevant family history pertinent to the patient complaint. Exam Narrative: GENERAL: This is a well-nourished, well-developed adult, in no apparent distress. They are non ill-appearing, nontoxic appearing. HEAD: normocephalic, atraumatic. No raccoon eyes or Harp signs. EYES: Sclera clear/white. Conjunctiva normal. Vision is grossly intact. Extraocular movements intact. Pupils PERRLA EARS: External ears normal, auditory canals clear and without drainage, TMs normal without perforation. Hearing grossly intact. No hemotympanum Bilaterally NOSE: External nose with no obvious deformity, abrasion over the nasal bridge. No obvious nasal discharge, nasal turbinates without redness, no rhinorrhea. THROAT: Mucous membranes moist, posterior pharynx clear, without erythema or swelling. Uvula midline. OROPHARYNX: Upper lip normal. Left lower lip erythematous on the left side. There is a laceration that is approximated closed. Laceration does not extend into the wet vermilion. Vermilion border intact. There is a small buccal laceration to the left lower mouth approximately 3-4 cm long. It approximates well but gapping when retracting the lip. No missing or fractured teeth. Tongue is normal. NECK: Neck supple, non-tender without lymphadenopathy, masses or thyromegaly. No cervical point tenderness, crepitus, or step-offs. CARDIOVASCULAR: Regular rate and rhythm RESPIRATORY: Respiratory rate normal, respiratory effort nonlabored, no respiratory distress. SKIN: warm, Dry, intact with no suspicious lesions or rash, good texture and turgor. NEURO: awake, alert, and oriented to person, place and time. There were no obvious focal neurologic abnormalities. EXTREMITIES: No joint tenderness, effusion, or edema noted. BACK: Nontender without deformity. No CVA tenderness. Course Course Level of Care: Express Care Visit Vital Signs Vital signs: Vital Signs Temperature 97.2 F L 05/17/25 08:17 Pulse Rate 88 05/17/25 08:17 Respiratory Rate 20 05/17/25 08:17 Blood Pressure 140/67 05/17/25 08:17 Pulse Oximetry 98 05/17/25 08:17 Oxygen Delivery Room Air 05/17/25 08:17 Temperature 97.2 F L 05/17/25 08:17 Pulse Rate 88 05/17/25 08:17 Respiratory Rate 20 05/17/25 08:17 Blood Pressure 140/67 05/17/25 08:17 Pulse Oximetry 98 05/17/25 08:17 Oxygen Delivery Room Air 05/17/25 08:17 Transfer Transfered to: [place] Transportation: Other (Private vehicle) Transfer rationale: Fall, loss of consciousness, facial injury, patient requires higher level care Accepting physician: Doctor Grant [facility] Narrative Medical decision making narrative: Patient would benefit from advanced imaging the higher level higher care given her injuries and loss of consciousness. Given patient's symptoms, it is recommend the patient seek a higher level care and proceed immediately to the emergency department. Patient agreeable to go to [place] ER. Called over to [place] ER spoke to Dr. Grant who is aware is patient accepted the patient for transfer. Patient advised to remain NPO and proceed immediately to the ER. Patient's son will drive to the hospital via private vehicle. Patient is hemodynamically stable to the hospital by private vehicle. Differential Diagnosis Differential Diagnosis: Close head injury, facial fracture, nasal fracture, orbital fracture, mandible fracture, oral laceration, syncope, intracranial hemorrhage Critical Care Time Critical Care Time Critical Care Time: No Discharge Plan Discharge Clinical Impression: Fall Qualifiers: Encounter type: initial encounter Qualified Code(s): W19.XXXA - Unspecified fall, initial encounter Syncope Qualifiers: Syncope type: unspecified Qualified Code(s): R55 - Syncope and collapse Facial injury Qualifiers: Encounter type: initial encounter Qualified Code(s): S09.93XA - Unspecified injury of face, initial encounter Patient Disposition: Acute Care Hospital Condition: Stable Patient Language: Hungarian Prescriptions: No Action cholecalciferol (vitamin D3) 50 mcg (2,000 unit) capsule 50 mcg PO DAILY magnesium 250 mg tablet 483 mg PO DAILY Fish Oil 350-600 mg capsule 2 cap PO DAILY Patient Comments: Take 2 capsules a day cyclobenzaprine 10 mg tablet 10 mg PO BID Qty: 20 0RF cetirizine [Zyrtec] 10 mg tablet 10 mg PO DAILY mecobalamin (vitamin B12) 1,000 mcg tablet,chewable 1,000 mcg PO DAILY biotin 5,000 mcg tablet,chewable 5,000 mcg PO DAILY Collagen 1500 Plus C 500 mg-800 mcg- 50 mg capsule 2 cap PO DAILY amoxicillin 500 mg capsule 500 mg PO Q12H Qty: 14 0RF simvastatin 40 mg tablet See Rx Instructions .ROUTE .COMPLEX Qty: 90 2RF Dose Instruction: TAKE 1 TABLET BY MOUTH DAILY IN THE EVENING Patient Comments: Says takes 1/2 tab daily Rx Instructions: TAKE 1 TABLET BY MOUTH DAILY IN THE EVENING amlodipine 10 mg tablet See Rx Instructions .ROUTE .COMPLEX Qty: 90 2RF Dose Instruction: TAKE 1 TABLET BY MOUTH DAILY Rx Instructions: TAKE 1 TABLET BY MOUTH DAILY sertraline 50 mg tablet See Rx Instructions .ROUTE .COMPLEX Qty: 270 2RF Dose Instruction: TAKE 3 TABLETS BY MOUTH DAILY Patient Comments: Says is only taking 50mg. Rx Instructions: TAKE 3 TABLETS BY MOUTH DAILY metoprolol tartrate 50 mg tablet See Rx Instructions .ROUTE .COMPLEX Qty: 90 2RF Dose Instruction: TAKE 1 TABLET BY MOUTH DAILY Rx Instructions: TAKE 1 TABLET BY MOUTH DAILY gabapentin 300 mg capsule 300 mg PO Q8H Qty: 90 2RF lisinopril 10 mg tablet See Rx Instructions .ROUTE .COMPLEX Qty: 90 2RF Dose Instruction: TAKE 1 TABLET BY MOUTH DAILY Rx Instructions: TAKE 1 TABLET BY MOUTH DAILY Follow-up/Referrals: Blaise Costa MD [Primary Care Provider, Internal Medicine] Time of Disposition: 08:47
== END 2025-05-17 08:52 | disposition short-term general hospital (02) ==
PROVIDERS: PCP Emergency Medicine
DX: R55 Syncope and collapse (principal); S01.511A Laceration without foreign body of lip, initial encounter; S01.512A Laceration without foreign body of oral cavity, initial encounter; W19.XXXA Unspecified fall, initial encounter; Z87.891 Personal history of nicotine dependence; E03.9 Hypothyroidism, unspecified; E78.5 Hyperlipidemia, unspecified; E55.9 Vitamin D deficiency, unspecified; E88.810 Metabolic syndrome; F32.9 Major depressive disorder, single episode, unspecified; M48.062 Spinal stenosis, lumbar region with neurogenic claudication; M47.26 Other spondylosis with radiculopathy, lumbar region
CPT/HCPCS: 99212; G0463

== ENCOUNTER 2025-05-17 09:01 | Emergency (ER) | payer OTHER, SELFPAY ==
--- NOTE | ~2025-05-17 | CT_ITS ---
EXAMINATION: CT facial bones wo con DATE: 05/17/2025 09:44 INDICATION: Fall. TECHNIQUE: Computed tomography (CT) of the facial bones and maxillofacial region was performed without intravenous contrast. Automated exposure control and iterative reconstruction technique were employed. The dose-length product was 482.24 mGy-cm. COMPARISON: None. FINDINGS: Alignment is normal. No fracture. There is mild mucosal thickening in the paranasal sinuses. There is severe cervical spondylosis. IMPRESSION: 1. No fracture. Reviewed, dictated and finalized at location E. MENTAL METAL WORKER APPRENTICE IMPRESSION: 1. No fracture.
--- NOTE | ~2025-05-17 | CT_ITS ---
EXAMINATION: CT brain wo con DATE: 05/17/2025 09:44 INDICATION: Fall. TECHNIQUE: Computed tomography (CT) of the head was performed without intravenous contrast. The mA was adjusted according to patient size. Iterative reconstruction technique was employed. The dose-length product was 681.00 mGy-cm. COMPARISON: Head CT 05/13/2011 FINDINGS: There is no intracranial hemorrhage, acute infarction, or abnormal intracranial mass lesion. The ventricles are normal in size. There is mild mucosal thickening in the paranasal sinuses. The orbits are normal. The mastoid air cells are normal. IMPRESSION: 1. Normal brain. Reviewed, dictated and finalized at location E. T METAL SUPERINTENDENT IMPRESSION: 1. Normal brain.
[2025-05-17 09:08] VITALS: BP 158/79; PULSE 87; RESP 16; TEMP 36.6; O2SAT 97
--- OUTSIDE RECORDS SUMMARY | 2025-05-17 09:21 | XMS_ITS | Encounter Summary ---
Author Organization [facility] Address [address] [place] [address] Care Team Providers Care Office Services Associate Name Role Phone Unavailable Primary Care Provider Unavailabl e Encounter Details Date Type Department Care Team (Late st Contact Info) Description 10/10/2019 Lab Requisition [facility] [address] [place] [id number] Darron Rodgers MD [address] [place] [address] Social History Tobacco Use Types Packs/Day Years [...] AM CDT) Case Report Dermatopathology Report Case: [id number] Authorizing Provider: Darron Rodgers MD Collected: 10/09/2019 12:00 AM Ordering Location: [facility] Received: 10/10/2019 11:33 AM [...] The specimen consists of an excision measuring [id number], bisected and submitted in cassettes 1-2. Jar [...] characteristic determined by the Dermatopathology Laboratory at [facility], directed by Dr. Aj Pal. These tests need not be, and therefore are not, approved by the [place] Food and Drug Administration. The tests are used for clinical purposes. Billing Codes Specimen Charges Stain Charges 90352 1 0 2:41 PM CDT DERMATOPATHOLOGY LABORATORY Embedded Images 0 2:41 PM CDT DERMATOPATHOLOGY LABORATORY Pathology/Cytolog y TISSUE SPECIMEN FROM SKIN / Unknown 10/09/2019 10/10/2019 11:33 AM CDT Darron Rodgers MD LAB - PATHOLOGY/CYTOLOGY ORD ERABLES Final Result DERMATOPATHOLOGY LABORATORY [facility] - Department of Dermatology [address] [place] [address], [facility] [phone] documented in this encounter Visit Diagnoses Not on filedocumented in this encounter
--- OUTSIDE RECORDS SUMMARY | 2025-05-17 09:21 | XMS_ITS | Clinical Summary ---
Author Organization [facility] Address [address] [place] [address] Care Team Providers Care Content Designer Name Role Phone Unavailable Primary Care Provider Unavailabl e Source Comments [facility] [employer],non-owned Affiliates and Associated Physician Practices is amultiple site organization consisting of ambulatory clinics and hospital sitesin [place], [place], [place] and [place]. This disclosure is being madepursuant to the Care Everywhere program and may not contain all information available regarding this patient. Last updated 18.[facility] Social History Tobacco Use Types Packs/Day Years [...] patient's age to complete this topic Insurance [employer]
--- NOTE | 2025-05-17 10:58 | ED.FALL ---
HPI - Fall General Chief Complaint: Fall Stated Complaint: fall last noc, facial abrasions Time Seen by Provider: 05/17/25 09:05 Source: patient Mode of arrival: ambulatory Limitations: no limitations History of Present Illness HPI Narrative: 59-year-old with a history of hypertension was sent in from urgent care with a complains of fall yesterday. Patient states that she had lost her balance and fell had alcohol prior to the fall. Might have lost consciousness. Also complains of laceration inside the mouth. Denies any neck pain or chest pain. MD complaint: fall Onset (ago): day(s) (1) Fall from: standing Fall witnessed: yes, by family Loss of consciousness: yes Prolonged down time: no Symptoms prior to fall: none Context: alcohol use Location of injury: head and face Related Data Home Medications ?Medication ?Instructions ?Recorded ?Confirmed ?Last Taken ?Type cetirizine 10 mg tablet (Zyrtec) 10 mg PO DAILY 10/14/19 05/15/25 03/25/25 History cholecalciferol (vitamin D3) 50 50 mcg PO DAILY 02/14/22 05/15/25 03/23/25 History mcg (2,000 unit) capsule mecobalamin (vitamin B12) 1,000 1,000 mcg PO DAILY 09/28/23 05/15/25 03/23/25 History mcg chewable tablet magnesium 250 mg tablet 483 mg PO DAILY 01/01/24 05/15/25 03/23/25 History biotin 5,000 mcg chewable tablet 5,000 mcg PO DAILY 02/13/24 05/15/25 03/23/25 History omega-3s 350 xi-wky-wyk-other 2 cap PO DAILY 06/24/24 05/15/25 03/23/25 History onnlw6w-gugr oil 600 mg capsule (Fish Oil) collagen,hydrolysate 500 mg-biotin 2 cap PO DAILY 03/17/25 05/15/25 03/23/25 History 800 mcg-ascorbic acid 50 mg capsule (Collagen 1500 Plus C) Allergies Allergy/AdvReac Type Severity Reaction Status Date / Time codeine AdvReac Intermediate Gastrointestinal Verified 05/17/25 08:11 Upset hydrocodone AdvReac Intermediate Gastrointestinal Verified 05/17/25 08:11 Upset Review of Systems Review of Systems: All systems reviewed & are unremarkable except as noted in HPI and below Constitutional: Constitutional: Reports no additional constitutional complaints Eyes: Eyes: Reports no additional eye complaints ENT: Reports system reviewed and no additional complaints, except as documented Cardiovascular: Cardiovascular: Reports no additional cardiovascular complaints Respiratory: Respiratory: Reports no additional respiratory complaints Gastrointestinal: Gastrointestinal: Reports no additional gastrointestinal complaints Musculoskeletal: Musculoskeletal: Reports no additional musculoskeletal complaints PMFSH Past Medical History Medical History Vertebrogenic low back pain Neurogenic claudication due to lumbar spinal stenosis Dorsalgia Lumbar stenosis Lumbar spondylosis Lumbar radiculopathy Shoulder pain, right Respiratory tract congestion with cough Upper respiratory tract infection Palpitation Sinusitis Epigastric pain Folliculitis Hyperglycemia Hypothyroidism, unspecified Major depressive disorder, single episode, unspecified Metabolic syndrome Rash Rhinosinusitis Sore throat Vitamin D deficiency Hyperlipidemia Surgical History Surgical History History of carpal tunnel release History of bladder surgery History of appendectomy Family History Family History Father Family history of pancreatic disease, Onset Age: 60 Mother Family history of heart disease in male family member before age 55, Onset Age: 67 Hypertension Sibling Hypertension Social History Social History Social History: Caffeinetea/coffee Smoking packs per day: 1.5 Smoking cigarettes per day: 30.0 Years smoked: 24 Smoking pack-years: 36.00 Smoking status: Former smoker Tobacco type: cigarettes Second hand tobacco smoke exposure: No Smoking end date: 03/28/05 Additional smoking assessment comments: QUIT 2004 Alcohol intake: current Drinks per week: 12 Substance use: current Substance use type: marijuana Other substance usage details: Twice weekly Lack of Transportation: No Lack of Food: Never True Current Housing: I Have Housing Concerned About Future Housing: No Difficulty Paying Gas/Electric Bills: No Difficulty Paying for Meds: No Currently Unemployed: No Education: Trade/Vocational Certificate Difficulty w/ Childcare or Family Care: No Living arrangements: with family Spiritual care concerns: No Exam Narrative: GENERAL: Well-appearing, well-nourished, and in no acute distress. HEAD: Normocephalic, atraumatic. Mild bruising noted on theupper lip EYES: PERRLA and EOMI. ENT: Nares clear, no rhinorrhea or epistaxis. Mucous membranes moist. A small buccal laceration present in the lower mandible. No active bleeding. NECK: Supple. CHEST: Clear to auscultation. No respiratory distress. HEART: Regular rate and rhythm. No murmur heard. Normal peripheral pulses. ABDOMEN: Soft, nontender, nondistended, normal active bowel sounds. EXTREMITIES: Normal range of motion. No edema. SKIN: Warm, dry, no rash. NEURO: No focal deficits. Alert and oriented x3. PSYCH: Normal mood and affect. Course Course Emergency Course: Notified patient about the CT findings. Advised her to take antibiotic as prescribed, follow-up with the primary doctor Vital Signs Vital signs: Vital Signs Temperature 36.6 C 05/17/25 09:08 Pulse Rate 87 05/17/25 09:08 Respiratory Rate 16 05/17/25 09:08 Blood Pressure 158/79 H 05/17/25 09:08 Pulse Oximetry 97 05/17/25 09:08 Oxygen Delivery Room Air 05/17/25 09:08 Temperature 36.6 C 05/17/25 09:08 Pulse Rate 87 05/17/25 09:08 Respiratory Rate 16 05/17/25 09:08 Blood Pressure 158/79 H 05/17/25 09:08 Pulse Oximetry 97 05/17/25 09:08 Oxygen Delivery Room Air 05/17/25 09:08 MDM Differential Diagnosis Differential Diagnosis: Facial fracture, intracranial bleed, mandibular fracture Imaging Data Radiologist's impression: ITS Impressions Head CT 05/17/25 10:34 IMPRESSION: 1. Normal brain. Face CT 05/17/25 10:39 IMPRESSION: 1. No fracture. Discharge Plan Discharge Clinical Impression: Minor head injury Qualifiers: Encounter type: initial encounter Qualified Code(s): S09.90XA - Unspecified injury of head, initial encounter Laceration of buccal mucosa Qualifiers: Encounter type: initial encounter Qualified Code(s): S01.512A - Laceration without foreign body of oral cavity, initial encounter Contusion of face Qualifiers: Encounter type: initial encounter Qualified Code(s): S00.83XA - Contusion of other part of head, initial encounter Patient Disposition: Home Condition: Stable Instructions: Laceration (DC), Contusion in Adults (ED) Additional Instructions: Take Tylenol and ibuprofen for pain, take antibiotic as prescribed they read avoid alcohol. Patient Language: Maltese Prescriptions: New amoxicillin 500 mg capsule 500 mg PO Q12H Qty: 14 0RF No Action cholecalciferol (vitamin D3) 50 mcg (2,000 unit) capsule 50 mcg PO DAILY magnesium 250 mg tablet 483 mg PO DAILY Fish Oil 350-600 mg capsule 2 cap PO DAILY Patient Comments: Take 2 capsules a day cyclobenzaprine 10 mg tablet 10 mg PO BID Qty: 20 0RF cetirizine [Zyrtec] 10 mg tablet 10 mg PO DAILY mecobalamin (vitamin B12) 1,000 mcg tablet,chewable 1,000 mcg PO DAILY biotin 5,000 mcg tablet,chewable 5,000 mcg PO DAILY Collagen 1500 Plus C 500 mg-800 mcg- 50 mg capsule 2 cap PO DAILY simvastatin 40 mg tablet See Rx Instructions .ROUTE .COMPLEX Qty: 90 2RF Dose Instruction: TAKE 1 TABLET BY MOUTH DAILY IN THE EVENING Patient Comments: Says takes 1/2 tab daily Rx Instructions: TAKE 1 TABLET BY MOUTH DAILY IN THE EVENING amlodipine 10 mg tablet See Rx Instructions .ROUTE .COMPLEX Qty: 90 2RF Dose Instruction: TAKE 1 TABLET BY MOUTH DAILY Rx Instructions: TAKE 1 TABLET BY MOUTH DAILY sertraline 50 mg tablet See Rx Instructions .ROUTE .COMPLEX Qty: 270 2RF Dose Instruction: TAKE 3 TABLETS BY MOUTH DAILY Patient Comments: Says is only taking 50mg. Rx Instructions: TAKE 3 TABLETS BY MOUTH DAILY metoprolol tartrate 50 mg tablet See Rx Instructions .ROUTE .COMPLEX Qty: 90 2RF Dose Instruction: TAKE 1 TABLET BY MOUTH DAILY Rx Instructions: TAKE 1 TABLET BY MOUTH DAILY gabapentin 300 mg capsule 300 mg PO Q8H Qty: 90 2RF lisinopril 10 mg tablet See Rx Instructions .ROUTE .COMPLEX Qty: 90 2RF Dose Instruction: TAKE 1 TABLET BY MOUTH DAILY Rx Instructions: TAKE 1 TABLET BY MOUTH DAILY Follow-up/Referrals: Blaise Costa MD [Primary Care Provider, Internal Medicine] Time of Disposition: 11:11
== END 2025-05-17 11:23 | disposition home or self-care (01) ==
PROVIDERS: Emergency Provider Family Medicine; PCP Emergency Medicine
DX: S01.512A Laceration without foreign body of oral cavity, initial encounter (principal); E03.9 Hypothyroidism, unspecified; E78.5 Hyperlipidemia, unspecified; Z87.891 Personal history of nicotine dependence; Z79.899 Other long term (current) drug therapy; W18.30XA Fall on same level, unspecified, initial encounter
CPT/HCPCS: 70450; 70486; 99284

== ENCOUNTER 2025-05-19 00:12 | Day surgery (SDC) | payer OTHER, SELFPAY ==
[2025-05-15 14:15] VITALS: BMI 41.3
--- NOTE | 2025-05-15 14:24 | SUR.PREOP ---
[facility] has started construction of its new state of the art ER which will open Spring 2026. With this, we anticipate parking may be a challenge for some our surgical patients and families. Parking spaces are limited but are available for all Surgical, obstetrics, and ER patients sharing this lot. If you arrive and find you are having a hard time finding a parking space, please note that we understand the challenges, please drive around the hospital and park near Hospital Entrance 1. When you enter this entrance, you can ask a volunteer to direct or take you back to the surgical waiting area to check in. We appreciate everyone?s understanding of these expected challenges while we build for your future. Report to the Outpatient Waiting Room, entrance under the green pavilion located off [address], at time ____1500___ on date _05/19/25 . Planned Procedure Time: __1600 .? Time changes happen often and if your time is changed the preop area will call you the afternoon before. - You and your visitor will be asked to self-screen and do not enter if you have any COVID symptoms. Please call surgeon if you need to reschedule. - A mask is optional within the hospital at this time. Patients may have clear liquids up to two hour and a light breakfast . Take only the following medications with a SIP of water on the morning of surgery: per office take medication as normal DO NOT STOP ANY OF YOUR OTHER PRESCRIPTION MEDICATIONS PRIOR TO SURGERY EXCEPT THE FOLLOWING Hold all vitamins and supplements for 3 days per anesthesiologist. Medications to discontinue per physician NA Date to take last dose Please no make-up, nail mohawk, hairspray, perfume, deodorant, or body powder the day of surgery.? No jewelry (including any body piercings) or valuables the day of surgery, leave them at home.? Please take a shower or bath the night before, or the morning of, surgery with an antibacterial soap.? Wear comfortable, loose fitting clothing.? Children are encouraged to wear pajamas. - Jewelry must be removed prior to entering the operating room.? Rings and piercings that are not removed may be cut off. - The hospital will not accept responsibility for valuables.? - Please leave all valuables, including medications, at home the day of surgery. If you are going home after surgery, a licensed electric train driver must drive you home.? per Dr Baker you cannot drive for 24 hours after your procedure Follow any additional instructions given to you from your surgeon. Telephone instructions given to patient Krysta and asked if any additional questions and then verbalized understanding. Patient advised to call surgeon office or pre surgery nurse liaison [phone] if any additional questions.
--- NOTE | ~2025-05-19 | XR_ITS ---
EXAM/PROCEDURE: XR fluoroscopy no charge HISTORY: DIAGNOSTIC/PROGNOSTIC BLOCKS LUMBAR COMPARISON: None available. TECHNIQUE: Fluoroscopic assisted procedure. Fluoroscopy time: 58.2 seconds. DAP: [phone] Baker per square centimeter IMPRESSION: Images of the lumbar region of the spine. No radiologist present. See procedure/operative notes for complete details. Reviewed, dictated and finalized at location A. IONARY ENGINEER APPRENTICE IMPRESSION: Images of the lumbar region of the spine. No radiologist present. See procedure /operative notes for complete details.
--- OUTSIDE RECORDS SUMMARY | 2025-05-19 00:15 | XMS_ITS | Encounter Summary ---
Author Organization [facility] Address [address] [place] [address] Care Team Providers Care Laboratory Chemical Assistant Name Role Phone Unavailable Primary Care Provider Unavailabl e Encounter Details Date Type Department Care Team (Late st Contact Info) Description 10/10/2019 Lab Requisition [facility] Derm[facility] [address] [place] [id number] Darron Rodgers MD [address] [place] [address] Social History Tobacco Use Types Packs/Day Years [...] AM CDT) Case Report Dermatopathology Report Case: [id number] Authorizing Provider: Darron Rodgers MD Collected: 10/09/2019 12:00 AM Ordering Location: [facility] Derm[facility] Received: 10/10/2019 11:33 AM Pathologist: [...] The specimen consists of an excision measuring [id number], bisected and submitted in cassettes 1-2. Jar [...] characteristic determined by the Dermatopathology Laboratory at [facility], directed by Dr. Aj Pal. These tests need not be, and therefore are not, approved by the [place] Food and Drug Administration. The tests are used for clinical purposes. Billing Codes Specimen Charges Stain Charges 95470 1 0 2:41 PM CDT DERMATOPATHOLOGY LABORATORY Embedded Images 0 2:41 PM CDT DERMATOPATHOLOGY LABORATORY Pathology/Cytolog y TISSUE SPECIMEN FROM SKIN / Unknown 10/09/2019 10/10/2019 11:33 AM CDT Darron Rodgers MD LAB - PATHOLOGY/CYTOLOGY ORD ERABLES Final Result DERMATOPATHOLOGY LABORATORY [facility] - Department of Dermatology [address] [place] [address], [facility] [phone] documented in this encounter Visit Diagnoses Not on filedocumented in this encounter
--- NOTE | 2025-05-19 13:48 | WPDHPUPDATE1 ---
History and Physical Update Update Date/Time: 05/19/25 13:48 History and Physical has been reviewed, including an updated exam of the patient. There are NO changes in the patient's condition. Risks, benefits, and alternatives have been discussed and questions answered. Patient agrees to proceed with procedure.
--- NOTE | 2025-05-19 13:49 | W.PM.PROC2 ---
Procedure Note - Detailed Date of Procedure 05/19/25 Pre-op Diagnosis spondylosis lumbar region, chronic low back pain Post-op Diagnosis Same Procedure Performed Diagnostic bilateral Lumbar Medial Branch/Dorsal Ramus Blocks at L3, L4, L5 Treating the bilateral L4-5, L5-S1 Facet Joints Under Fluoroscopic Guidance and with Contrast Control. (4 levels blocked). Surgeon Buddy Baker MD [employer] Counselor None. Anesthesia Local Description of Procedure INFORMED CONSENT: Risks, benefits and alternatives to the procedure were discussed in detail with the patient who expressed explicit understanding and consent to proceed. Patient was informed verbally and in written form regarding the risks associated with the procedure including the low risk of serious infection, bleeding/bruising, allergic reaction, nerve or organ injury, paralysis, procedural site pain or discomfort, worsening pain and/or mobility, failure to treat and/or disfigurement. The patient expressed explicit understanding and consent to proceed. All materials required for the procedure were available prior to procedure start. Site and side were marked prior to procedure and confirmed in the presence of the patient. PROCEDURE IN DETAIL: The patient was brought to the procedural suite and placed in the prone position. Patient was made comfortable with use of pillows under the head/chest, hips and ankles. Skin overlying the injection site on the affected side(s) was prepared broadly with ChloraPrep applicator and draped in a sterile manner. Aseptic technique was used throughout. The endplates of the vertebral bodies at the site(s) of interest were aligned in the AP view. Ipsilateral oblique angulation was utilized to optimize visualization of the intersection between the superior articulating process and transverse process at each target site. Local anesthesia was established by infiltration with approximately 5 mL of 1% lidocaine via a 1-1/2 inch 27-gauge needle. A 25-gauge 5.0 inch Quincke spinal needle was advanced until the needle tip contacted periosteum at the target site, right L3. Lateral view was utilized to confirm the appropriate placement of the needle tip just anterior to the facet line and superior to the pedicle. In the Lateral view, 0.25 mL of Omnipaque 300 contrast medium was injected after negative aspiration for CSF, blood or other bodily fluid, showing appropriate extra-articular spread of contrast without evidence of intravascular, foraminal or intrathecal placement. A 0.5 mL solution of 0.5% PF bupivacaine was injected after negative repeat aspiration. Appropriate spread of the injectate was confirmed with washout of previously injected contrast. No parasthesias were elicited. Needle was removed completely intact without difficulty. The same exact procedure was repeated for all remaining levels on the ipsilateral side, right L4, L5 medial branches/dorsal ramus, modified as necessary to accommodate for the new target location with identical findings and results and no evidence of complication. The same exact procedure was repeated for all remaining levels on the contralateral side, left L3, L4, L5 medial branches/dorsal ramus, modified as necessary to accommodate for the new target location with identical findings and results and no evidence of complication. Images were saved and documented in the patient chart. Patient's skin was cleaned and sterile bandage applied. The patient tolerated the procedure well. The patient was transported to the recovery area in stable condition where they were observed for an appropriate amount of time prior to discharge, without evidence of complication. Patient was instructed on the appropriate completion of a pain diary over the next 12-24 hours. The patient was instructed to avoid excessive activity for the next 48 hours, including climbing and frequent use of stairs. Showers only for 48 hours. They were instructed not to drive or operate heavy machinery for 24 hours. They are to monitor for severe headaches, fevers, chills, night sweats, erythema/swelling at the site or any other signs of infection, bleeding/bruising, bowel or bladder changes as well as new pain, weakness or numbness in the upper or lower extremity. Should they notice these changes, they are instructed to call our office immediately or report directly to the nearest Emergency Department if no answer or if after posted office hours. COMPLICATIONS: None COMMENTS: None CONTRAST WASTED: 28.5mL Omnipaque 300. Complications No immediate complications Condition Stable Disposition Same day [facility] Billing Surgery - Charge Forward: Surgery Billing
[2025-05-19 14:43] VITALS: BP 160/78; PULSE 75; RESP 18; TEMP 36.9; O2SAT 98; BMI 40.5
[2025-05-19 15:43] VITALS: BP 151/87; PULSE 76; O2SAT 97
[2025-05-19 15:50] VITALS: BP 153/9; PULSE 73; O2SAT 95
[2025-05-19] MEDS: LIDOCAINE 1% PF INJ 5 ML VIAL INFILTRATE (15:52)
[2025-05-19 15:58] VITALS: BP 151/84; PULSE 67; O2SAT 97
[2025-05-19 16:24] VITALS: BP 141/80; PULSE 66
== END 2025-05-19 16:40 | disposition home or self-care (01) ==
PROVIDERS: PCP Emergency Medicine; Visit Provider Anesthesiology Pain Medicine
PROC: (CPT 64493; principal; 2025-05-19 15:30)
DX: M47.816 Spondylosis without myelopathy or radiculopathy, lumbar region (principal); M48.061 Spinal stenosis, lumbar region without neurogenic claudication; E78.5 Hyperlipidemia, unspecified; E03.9 Hypothyroidism, unspecified; E55.9 Vitamin D deficiency, unspecified; R73.9 Hyperglycemia, unspecified; F32.9 Major depressive disorder, single episode, unspecified; E88.810 Metabolic syndrome; F12.90 Cannabis use, unspecified, uncomplicated; Z98.890 Other specified postprocedural states; Z87.891 Personal history of nicotine dependence; Z82.49 Family history of ischemic heart disease and other diseases of the circulatory system
CPT/HCPCS: 64493; 64494 ×2; 64495 ×2; 99199; J2003; Q9965